=== PATIENT | female | born 1975 ===

== ENCOUNTER 2017-03-03 02:39 | Emergency (ER) | payer OTHER ==
[2017-03-03 02:49] VITALS: BP 112/73; PULSE 68; TEMP 98.5
[2017-03-03 02:57] VITALS: RESP 16; O2SAT 100
--- NOTE | 2017-03-03 03:37 | ED PDOC ---
HPI: SOB/CHF/COPD Time Seen by Provider: 03/03/17 02:46 Chief Complaint (Nursing): Flu-like Symptoms Chief Complaint (Provider): SOB History Per: Patient, Family (daughter ) History/Exam Limitations: no limitations Onset/Duration Of Symptoms: Sudden Onset Current Symptoms Are (Timing): Gone Now Additional Complaint(s): 41yo female with PMHx including prediabetes presents to the ED for eval of isolated episode of SOB. Daughter brought patient in because of brief episode of difficulty breathing while lying flat that lasted less than 1 minute with coughing fit. Resolved completely after episode however daughter forced patient to come to ED for eval. Patient has had 3 similar episodes this past year. Of note, patient has had flu-like symptoms for the past week with congestion and runny nose. Past Medical History Reviewed: Historical Data, Nursing Documentation, Vital Signs Vital Signs: Last Vital Signs Temp 98.5 F 03/03/17 02:55 Pulse 68 03/03/17 02:55 Resp 16 03/03/17 02:55 BP 112/73 03/03/17 02:55 Pulse Ox 100 03/03/17 03:41 - Medical History Other PMH: prediabetes - Surgical History Surgical History: - Family History Family History: States: No Known Family Hx - Home Medications Home Medications: Ambulatory Orders Medication Instructions Recorded Oxycodone HCl/Acetaminophen 1 tab PO Q6H PRN #15 tab 04/27/15 [Percocet 325 mg-5 mg] Famotidine [Pepcid] 20 mg PO BID PRN #10 tab 09/01/15 Doxycycline Hyclate 100 mg PO BID #27 capsule 11/19/15 Ibuprofen 600 mg PO Q6 PRN #15 tablet 11/19/15 Ofloxacin Otic 0.3% [Floxin 0.3% 10 drop DAILY #1 bottle 06/09/16 Otic Soln] Albuterol HFA [Ventolin HFA 90 2 puff IH [id number] #1 puff 03/03/17 mcg/actuation (8 g)] - Allergies Allergies/Adverse Reactions: Allergies Allergy/AdvReac Type Severity Reaction Status Date / Time No Known Allergies Allergy Verified 11/18/15 19:49 Review of Systems ROS Statement: Except As Marked, All Systems Reviewed And Found Negative ENT: Positive for: Nose Discharge, Nose Congestion Respiratory: Positive for: Cough, Shortness of Breath Physical Exam - Reviewed Nursing Documentation Reviewed: Yes Vital Signs Reviewed: Yes - Physical Exam Appears: Positive for: Well, No Acute Distress Head Exam: Positive for: ATRAUMATIC, NORMAL INSPECTION, NORMOCEPHALIC Skin: Positive for: Normal Color, Warm, Dry Eye Exam: Positive for: Normal appearance, EOMI, PERRL ENT: Positive for: Normal ENT Inspection Neck: Positive for: Normal, Painless ROM, Supple Cardiovascular/Chest: Positive for: Regular Rate, Rhythm. Negative for: Murmur , Tachycardia Respiratory: Positive for: Normal Breath Sounds. Negative for: Wheezing, Respiratory Distress Gastrointestinal/Abdominal: Positive for: Normal Exam, Soft. Negative for: Tenderness Back: Positive for: Normal Inspection Extremity: Positive for: Normal ROM. Negative for: Deformity, Swelling Neurologic/Psych: Positive for: Alert, Oriented - ECG O2 Sat by Pulse Oximetry: 100 Pulse Ox Interpretation: Normal (RA) Medical Decision Making Medical Decision Makin: Impression: nasal congestion, viral illness Plan: saline nebulizer 0332: Patient stable for d/c. Return precautions given. Scribe Attestation: Documented by Rachelle Vogel acting as a scribe for Tim White MD. Provider Scribe Attestation: All medical record entries made by the Scribe were at my direction and personally dictated by me. I have reviewed the chart and agree that the record accurately reflects my personal performance of the history, physical exam, medical decision making, and the department course for this patient. I have also personally directed, reviewed, and agree with the discharge instructions and disposition. Disposition - Clinical Impression Clinical Impression: Upper respiratory infection - Patient ED Disposition Is Patient to be Admitted: No - Disposition Referrals: [facility] [Outside] Disposition: Routine/Home Disposition Time: 03:32 Condition: STABLE Prescriptions: Albuterol HFA [Ventolin HFA 90 mcg/actuation (8 g)] 2 puff IH [id number] #1 puff Instructions: Albuterol (By breathing), Upper Respiratory Infection (ED) Print Language: GUATEMALAN
== END 2017-03-03 05:08 | disposition home or self-care (01) ==
LOC: H.ER 02:39
DX: J06.9 Acute upper respiratory infection, unspecified (principal); R09.81 Nasal congestion; R73.03 Prediabetes

== ENCOUNTER 2018-01-12 21:31 | Emergency (ER) | payer OTHER ==
[2018-01-12 21:39] VITALS: BP 146/73; PULSE 89; RESP 18; TEMP 98.8; O2SAT 97
[2018-01-12] MEDS ORDERED: Morphine 4 MG/ML VIAL IV STA (21:47)
[2018-01-12] MEDS ORDERED: Morphine 4 MG/ML VIAL ONE (21:49)
--- NOTE | 2018-01-12 23:26 | CP.PCM.CON ---
History of Present Illness - History of Present Illness History of Present Illness: Podiatry Consult Note - Dr. Stone 42 year old female patient seen and evaluated in ED regarding left ankle pain. Daughter present at bedside. Patient states at approximately 8:30PM this evening , her right knee "locked" while she was walking and fell to the ground. Admits she felt dizzy and SOB at time of injury, though has neither of these symptoms at present. Patient was taken to [facility] ED by EMS for further evaluation. Patient unable to bear weight to her LLE. Patient reports severe pain to her left ankle ; was given Morphine 4mg IV in ED which has provided mild relief. Patient admits to feeling slight numbness localized to the front of her ankle. No other complaints. Denies N/V/F/D/C. Review of Systems - Review of Systems All systems: reviewed and no additional remarkable complaints except (as per HPI ) Past Patient History - Past Social History Smoking Status: Never Smoked - ENDOCRINE/METABOLIC Other/Comment: pre-diabetic - PSYCHIATRIC Hx Substance Use: No - SURGICAL HISTORY Hx Surgeries: Yes Hx Section: Yes (x2) - ANESTHESIA Hx Anesthesia: Yes Meds Home Medications: Home Medication List Medication Instructions Recorded Confirmed Type oxyCODONE/Acetaminophen [Percocet 1 ea PO Q8 PRN #14 tab 01/13/18 Rx 5/325 mg Tab] Allergies/Adverse Reactions: Allergies Allergy/AdvReac Type Severity Reaction Status Date / Time No Known Allergies Allergy Verified 01/12/18 21:37 Physical Exam - Constitutional Appears: Well, Non-toxic, In Acute Distress - Extremities Exam Additional comments: LLE focused physical exam VASC: DP pulse palpable 2/4. PT pulse nonpalpable secondary to edema. CFT <3 seconds to all digits. Temperature gradient warm to warm. Nonpitting perimalleolar edema noted. NEURO: Light touch sensation diminished at anterior ankle joint; however, present at anterior/lateral/posterior/medial leg, medial/lateral/posterior ankle , dorsal/plantar/medial/lateral foot. ORTHO: Pain on palpation medial and lateral malleoli. Active digital ROM noted to digits 1-5. Slight active ankle DF noted however decreased due to guarding. Tenderness upon posterior calf squeeze. Pain upon calcaneal squeeze. Pain upon tib-fib compression. - Neurological Exam Neurological exam: Alert, Oriented x3 - Psychiatric Exam Psychiatric exam: Anxious Results - Vital Signs Recent Vital Signs: Last Vital Signs Temp 98.8 F 01/12/18 21:37 Pulse 89 01/12/18 21:37 Resp 18 01/12/18 21:37 BP 146/73 01/12/18 21:37 Pulse Ox 97 01/12/18 21:37 - Labs Result Diagrams: 01/13/18 02:05 01/13/18 02:05 Assessment & Plan - Assessment and Plan (Free Text) Assessment: 42 year old female with displaced bimalleolar ankle fracture LLE secondary to fall Plan: Patient seen and evaluated Discussed with attending, Dr. Stone Left ankle XR reviewed: displaced bimalleolar ankle fracture Discussed with patient and family that surgery is highly recommended due to the deformity at present; informed patient of risks, benefits, complications, and alternatives to surgical intervention and wishes to proceed. CBC/CMP/CPK/Coags/CXR/EKG ordered -CPK WNL Posterior splint applied to LLE; patient to be NWB LLE with the assistance of crutches -Keep dressing clean/dry/intact until follow up appointment Recommend RICE therapy Pain control per ED Advised patient to follow up with Dr. Stone in the podiatry clinic on 01/17/18 to schedule for surgery Stable per podiatry standpoint Thank you for the consult, please reconsult podiatry as needed
--- NOTE | 2018-01-13 00:09 | ED PDOC ---
Lower Extremity Pain/Injury Time Seen by Provider: 01/12/18 21:44 Chief Complaint (Nursing): Lower Extremity Problem/Injury Chief Complaint (Provider): Left ankle pain, twisted History Per: Patient, Family History/Exam Limitations: no limitations Onset/Duration Of Symptoms: Mins Current Symptoms Are (Timing): Still Present Additional Complaint(s): 42 yo female presents with left ankle pain after a fall. Pt states she has had problems with her knees for a long time and [employer] her knees buckled and she twisted the right ankle. No back injury. No head injury. Pt reports feeling cramping all over. Past Medical History Reviewed: Historical Data, Nursing Documentation, Vital Signs Vital Signs: Last Vital Signs Temp 98.8 F 01/12/18 21:37 Pulse 89 01/12/18 21:37 Resp 18 01/12/18 21:37 BP 146/73 01/12/18 21:37 Pulse Ox 97 01/12/18 21:37 - Medical History PMH: Diabetes - Surgical History Surgical History: - Family History Family History: States: Unknown Family Hx - Home Medications Home Medications: Ambulatory Orders Medication Instructions Recorded Oxycodone HCl/Acetaminophen 1 tab PO Q6H PRN #15 tab 04/27/15 [Percocet 325 mg-5 mg] Famotidine [Pepcid] 20 mg PO BID PRN #10 tab 09/01/15 Doxycycline Hyclate 100 mg PO BID #27 capsule 11/19/15 Ibuprofen 600 mg PO Q6 PRN #15 tablet 11/19/15 Ofloxacin Otic 0.3% [Floxin 0.3% 10 drop DAILY #1 bottle 06/09/16 Otic Soln] Albuterol HFA [Ventolin HFA 90 2 puff IH [id number] #1 puff 03/03/17 mcg/actuation (8 g)] - Allergies Allergies/Adverse Reactions: Allergies Allergy/AdvReac Type Severity Reaction Status Date / Time No Known Allergies Allergy Verified 01/12/18 21:37 Physical Exam - Reviewed Nursing Documentation Reviewed: Yes Vital Signs Reviewed: Yes - Physical Exam Appears: Positive for: Well, Non-toxic, No Acute Distress Head Exam: Positive for: ATRAUMATIC, NORMAL INSPECTION, NORMOCEPHALIC Skin: Positive for: Warm. Negative for: Normal Color (No ecchymosis, no erythema ) Eye Exam: Positive for: Normal appearance ENT: Positive for: Normal ENT Inspection Neck: Positive for: Normal, Painless ROM Respiratory: Negative for: Accessory Muscle Use, Respiratory Distress Pulses-Dorsalis Pedis (L): 2+ Pulses-Dorsalis Pedis (R): 2+ Pulses-Post. Tibialis (L): 2+ Pulses-Post. Tibialis (R): 2+ Back: Positive for: Normal Inspection. Negative for: Vertebral Tenderness Extremity: Positive for: Tenderness (Bilateral malleolous ), Deformity (Left fibula), Swelling. Negative for: Normal ROM (Decreased ROM in the ankle due to pain) Neurologic/Psych: Positive for: Alert, Oriented - ECG O2 Sat by Pulse Oximetry: 97 Medical Decision Making Medical Decision Making: Podiatry consult completed. Endorsed to Anthony Lyles PA-C pending disposition. Disposition - Clinical Impression Clinical Impression: Ankle fracture - Patient ED Disposition Is Patient to be Admitted: Transfer of Care - Disposition Disposition: Transfer of Care Disposition Time: 00:11 Condition: STABLE Instructions: Ankle Fracture
[2018-01-13 02:09] LABS: BASO % 0.4 % (0.0-2.0); EOS # 0.1 K/uL (0.0-0.7); EOS % 1.5 % (0.0-4.0); HEMOGLOBIN 10.8 g/dL (12.0-16.0); LYMPH # 3.4 K/uL (1.0-4.3); LYMPH % 38.3 % (20.0-40.0); MEAN CELL VOLUME 75.2 fl (81.0-99.0); MEAN CORPUSCULAR HEMOGLOBIN 23.6 pg (27.0-31.0); MEAN CORPUSCULAR HGB CONC 31.4 g/dL (33.0-37.0); MEAN PLATELET VOLUME 8.9 fl (7.2-11.7); MONO # 0.7 K/uL (0.0-0.8); MONO % 8.2 % (0.0-10.0); NEUT # 4.5 K/uL (1.8-7.0); NEUT % 51.6 % (50.0-75.0); NRBC % 0.1 % (0.0-0.0); RBC 4.57 Mil/uL (3.80-5.20); RED CELL DISTRIBUTION WIDTH 16.4 % (11.5-14.5); WHITE BLOOD COUNT 8.8 K/uL (4.8-10.8)
[2018-01-13 02:19] LABS: ALB/GLOB RATIO 1.2 (1.0-2.1); ALBUMIN 4.4 g/dL (3.5-5.0); ALT/SGPT 67 U/L (9-52); AST/SGOT 43 U/L (14-36); BLOOD UREA NITROGEN 17 mg/dl (7-17); CALCIUM 9.9 mg/dL (8.4-10.2); GFR AFRICAN-AMERICAN > 60; GFR NON-AFRICAN AMERICAN > 60
[2018-01-13 02:27] LABS: PARTIAL THROMBOPLASTIN TIME 30.9 Seconds (25.6-37.1); PROTHROMBIN TIME 10.8 Seconds (9.8-13.1)
--- NOTE | 2018-01-13 03:42 | ED PDOC ---
- Laboratory Results Result Diagrams: 01/13/18 02:05 01/13/18 02:05 - ECG O2 Sat by Pulse Oximetry: 97 - Radiology X-Ray: Interpreted by Me (CXR) X-Ray Interpretation: No Acute Disease - Progress ED Course And Treament: 0000 Signed out to me pending podiatry disposition. 0020 Reports moderate analgesia after getting Toradol. 0111 Spoke with Radha, podiatry resident, who discussed case with Dr. Stone and requests pt. to be cleared for surgery and for CPK level to be done. 0230 Leg was splinted by Radha in ED and arrangements made for outpt f/u with podiatry clinic. Disposition - Clinical Impression Clinical Impression: Ankle fracture - POA Present On Arrival: None - Disposition Referrals: Podiatry Clinic [Outside] Disposition: Routine/Home Disposition Time: 04:00 Condition: STABLE Additional Instructions: Follow up with podiatry clinic on Monday01/17/2018 between 12:00pm - 3:00pm WITHOUT FAIL. Prescriptions: oxyCODONE/Acetaminophen [Percocet 5/325 mg Tab] 1 ea PO Q8 PRN #14 tab PRN Reason: Pain Instructions: Ankle Fracture, How to Use Crutches Forms: [employer] (Ukrainian), [facility] ED School/Work Excuse Print Language: TRINIDADIAN
--- NOTE | 2018-01-13 10:30 | RAD ---
PROCEDURE: Left ankle dated 01/12/2018 HISTORY: left ankle and foot pain s/p fall COMPARISON: Correlation made with concurrent radiographs of the left tibia and fibula. FINDINGS: BONES: There is a comminuted oblique/diagonal fracture traversing the distal left fibular diaphysis with a fracture traversing the medial malleolus and widening of the ankle mortise. JOINTS: Widening of the ankle mortise consistent with ligamentous disruption SOFT TISSUES: Surrounding soft tissue swelling medial greater than lateral. OTHER FINDINGS: None. IMPRESSION: There is a comminuted fracture traversing the distal left fibular diaphysis. Fracture medial malleolus with widening of the ankle mortise consistent with ligamentous disruption. Surrounding soft tissue swelling medial greater than lateral.
--- NOTE | 2018-01-13 10:31 | RAD ---
PROCEDURE: Radiographs of the left tibia and fibula. HISTORY: pain, twisted ankle COMPARISON: Correlation made with concurrent radiographs of the left ankle. TECHNIQUE: Frontal and lateral views obtained. FINDINGS: BONES: There is a comminuted oblique/diagonal fracture traversing the distal left fibular diaphysis with a fracture traversing the medial malleolus and widening of the ankle mortise consistent with ligamentous disruption. . Surrounding soft tissue swelling medial greater than lateral. JOINT SPACES: Widening of the ankle mortise consistent with ligamentous disruption. OTHER FINDINGS: None. IMPRESSION: There is a comminuted oblique/diagonal fracture traversing the distal left fibular diaphysis with a fracture traversing the medial malleolus and widening of the ankle mortise consistent with ligamentous disruption.
--- NOTE | 2018-01-15 10:10 | RAD ---
HISTORY: clearance COMPARISON: No prior. FINDINGS: LUNGS: No active pulmonary disease. PLEURA: No significant pleural effusion identified, no pneumothorax apparent. CARDIOVASCULAR: Normal. OSSEOUS STRUCTURES: No significant abnormalities. VISUALIZED UPPER ABDOMEN: Normal. OTHER FINDINGS: None. IMPRESSION: No active disease.
--- NOTE | 2018-01-15 13:32 | CARD ---
APPROVED REPORT EKG Measurement Heart [id number] NE 154P30 [id number] <Conclusion> Normal sinus rhythm Nonspecific ST abnormality Abnormal ECG
== END 2018-01-13 04:15 | disposition home or self-care (01) ==
LOC: H.ER 21:31
DX: S82.52XA Displaced fracture of medial malleolus of left tibia, initial encounter for closed fracture (principal); E11.9 Type 2 diabetes mellitus without complications; W19.XXXA Unspecified fall, initial encounter
CPT/HCPCS: 29515; 71045; 73590; 73610; 80053; 81025; 82550; 85025; 85610; 85730; 86850; 86900; 93005; 99285; J1885; J2270

== ENCOUNTER 2018-01-14 02:00 | Inpatient (IN) | payer OTHER ==
[2018-01-14 02:14] VITALS: BMI 36.6
--- NOTE | 2018-01-14 02:33 | ED PDOC ---
HPI: General Adult Time Seen by Provider: 01/14/18 02:02 Chief Complaint (Nursing): Lower Extremity Problem/Injury History Per: Patient, Family (daughter) Additional Complaint(s): Pt. states at approximately 2000 today she fell down trying to sit back on a chair. States yesterday she was dx with a L ankle fracture and placed on a splint and is currently using crutches. As per daughter pt. has a pre-existing R knee injury for which her PMD is treating her. When she attempted to sit down she lost balance on her R leg and fell on her L. Since falling down pain and swelling worsened on the L leg. Prior to the fall pain was controlled with percocet and splint fit well but after the fall splint began to feel tighter and pain became uncontrolled with percocet prompting ED visit. Denies other injury, chest pain, SOB, palpitations, head injury. Past Medical History Reviewed: Historical Data, Nursing Documentation, Vital Signs Vital Signs: Last Vital Signs Temp 98.6 F 01/14/18 05:24 Pulse 87 01/14/18 05:24 Resp 14 01/14/18 05:24 BP 111/69 01/14/18 05:24 Pulse Ox 100 01/14/18 04:40 - Medical History PMH: Diabetes (pre-DM) - Surgical History Surgical History: - Family History Family History: States: No Known Family Hx - Home Medications Home Medications: Ambulatory Orders Medication Instructions Recorded Naproxen [Naproxen] 375 mg PO PRN PRN 01/13/18 oxyCODONE/Acetaminophen [Percocet 1 ea PO Q8 PRN #14 tab 01/13/18 5/325 mg Tab] - Allergies Allergies/Adverse Reactions: Allergies Allergy/AdvReac Type Severity Reaction Status Date / Time No Known Allergies Allergy Verified 01/14/18 02:15 Review of Systems ROS Statement: Except As Marked, All Systems Reviewed And Found Negative Musculoskeletal: Positive for: Leg Pain Physical Exam - Reviewed Nursing Documentation Reviewed: Yes Vital Signs Reviewed: Yes - Physical Exam Appears: Positive for: Well, Non-toxic, No Acute Distress Head Exam: Positive for: ATRAUMATIC, NORMAL INSPECTION, NORMOCEPHALIC Skin: Positive for: Normal Color, Warm. Negative for: Rash Eye Exam: Positive for: Normal appearance ENT: Positive for: Normal ENT Inspection Neck: Positive for: Normal, Painless ROM Cardiovascular/Chest: Positive for: Regular Rate, Rhythm Respiratory: Positive for: CNT, Normal Breath Sounds Pulses-Dorsalis Pedis (L): 2+ Pulses-Dorsalis Pedis (R): 2+ Gastrointestinal/Abdominal: Positive for: Normal Exam, Soft. Negative for: Tenderness Back: Positive for: Normal Inspection Extremity: Positive for: Other (L leg in posterior short leg splint which is clean, dry, and intact) Neurologic/Psych: Positive for: Alert, Oriented - Laboratory Results Result Diagrams: 01/14/18 03:50 01/14/18 03:50 - ECG O2 Sat by Pulse Oximetry: 98 - Progress ED Course And Treament: Posterior short leg splint was removed. L leg appears more swollen from yesterday's exam with scattered ecchymosis, intact vesicle on medial surface of L ankle just inferior to medial malleoli; no deformity; DP pulse 2+ b/l; able to actively move toes on L foot; distal sensation intact Labs, toradol 30mg IVP, L ankle/tib/fib x-rays ordered. Case d/w Radha, podiatry resident, who will come see patient in ED. 0320 L ankle x-ray: bimalleolar fx is further displaced when compared to previous x- rays. Pt. evaluated by Radha who spoke with Dr. Stone and requests pt. to be admitted. 0325 Due to increase in displacement, unresolved pain with PO narcotics at home, and instability on crutches pt. will be admitted. Dr. Mathias discussed case with Dr. Prasad, FP resident, and arrangements made for admission. Disposition - Clinical Impression Clinical Impression: Ankle fracture - Patient ED Disposition Is Patient to be Admitted: Yes - Disposition Disposition Time: 03:31 Condition: STABLE
--- NOTE | 2018-01-14 02:37 | CP.PCM.CON ---
History of Present Illness - History of Present Illness History of Present Illness: Podiatry Consult Note - Dr. Stone 42 year old female patient presents to ED s/p fall onto left bimalleolar ankle fracture. Daughter and ex-partner present at bedside. Of note, patient was seen in [facility] ED yesterday evening and was found to have a displaced bimalleolar ankle fracture LLE; was splinted and discharged home on crutches with plan to be followed as outpatient. Patient states after discharge, pain was controlled and was resting at home uneventfully until about 20:00 yesterday when she lost balance while attempting to sit in a chair, and fell onto the splint. Currently , patient reports severe pain to her left leg and ankle not controlled by her Rx Percocet. Denies any numbness to LLE. Denies other injuries. Admits to feeling lightheaded s/p fall. Denies N/V/F/D/C/SOB. Review of Systems - Review of Systems All systems: reviewed and no additional remarkable complaints except (as per HPI ) Past Patient History - Past Social History Smoking Status: Never Smoked - ENDOCRINE/METABOLIC Other/Comment: pre-diabetic - PSYCHIATRIC Hx Substance Use: No - SURGICAL HISTORY Hx Surgeries: Yes Hx Section: Yes (x2) - ANESTHESIA Hx Anesthesia: Yes Meds Allergies/Adverse Reactions: Allergies Allergy/AdvReac Type Severity Reaction Status Date / Time No Known Allergies Allergy Verified 01/14/18 02:15 - Medications Medications: Current Medications Ketorolac Tromethamine (Toradol) 30 mg IVP ONCE ONE Stop: 01/14/18 02:24 Physical Exam - Constitutional Appears: Well, Non-toxic, No Acute Distress - Extremities Exam Additional comments: LLE focused physical exam VASC: DP pulse palpable 2/4. PT pulse nonpalpable secondary to edema. CFT <3 seconds to all digits. Temperature gradient warm to warm. Nonpitting perimalleolar edema noted, worsened since yesterday. NEURO: Light touch sensation diminished at anterior ankle joint; however, present at anterior/lateral/posterior/medial leg, medial/lateral/posterior ankle , dorsal/plantar/medial/lateral foot. DERM: Ecchymosis noted around medial foot/ankle with one serous blister inferior to medial malleolus. No open lesions noted. No skin tenting noted. ORTHO: Pain on palpation medial and lateral malleoli. Active digital ROM noted to digits 1-5. Slight active ankle DF noted however decreased due to guarding. Tenderness upon posterior calf squeeze. Pain upon calcaneal squeeze. Pain upon tib-fib compression. - Neurological Exam Neurological exam: Alert, Oriented x3 - Psychiatric Exam Psychiatric exam: Normal Affect, Normal Mood Results - Vital Signs Recent Vital Signs: Last Vital Signs Temp 98.4 F 01/14/18 02:16 Pulse 84 01/14/18 02:16 Resp 16 01/14/18 02:16 BP 137/82 01/14/18 02:16 Pulse Ox 98 01/14/18 02:35 - Labs Result Diagrams: 01/14/18 03:50 Assessment & Plan - Assessment and Plan (Free Text) Assessment: 42 year old female with displaced bimalleolar ankle fracture LLE secondary to fall Plan: Patient seen and evaluated Discussed with attending, Dr. Stone Left ankle XR reviewed(01/13/18): displaced bimalleolar ankle fracture Left ankle XR reviewed(01/14/18): further displacement bimalleolar ankle fracture , with fragmentation of proximal end of fibular fracture Discussed with patient and family that surgery is highly recommended due to the deformity at present; informed patient of risks, benefits, complications, and alternatives to surgical intervention and wishes to proceed. Posterior splint reapplied to LLE; patient to be strict NWB with no OOB privileges Recommend RICE therapy Patient to be admitted for intractable pain and imbalance Pain control per medicine Podiatry will continue to follow
[2018-01-14 04:16] LABS: ALB/GLOB RATIO 1.1 (1.0-2.1); ALBUMIN 4.2 g/dL (3.5-5.0); ALT/SGPT 57 U/L (9-52); AST/SGOT 58 U/L (14-36); BLOOD UREA NITROGEN 14 mg/dl (7-17); CALCIUM 9.4 mg/dL (8.4-10.2); GFR AFRICAN-AMERICAN > 60; GFR NON-AFRICAN AMERICAN > 60
--- NOTE | 2018-01-14 04:17 | CP.PCM.HP ---
<Nimesh Prasad - Last Filed: 01/14/18 04:17> History of Present Illness - History of Present Illness History of Present Illness: CC: left leg pain HPI: 42 y/o woman w/ pmh of pre-diabetes presents to ED w/ left leg pain. Patient was seen in ED earlier 1 day ago for left displaced bimalleolar ankle fracture s/p fall. Patient was splinted, given crutches, discharged, and arrangements were made for patient to follow up as outpatient for surgery after medical optimization. Patient's pain was controlled but returns to ED due to fall last night at 20:00 upon trying to sit down. Patient lost balanced and fell on left leg. Patient denies LOC or head trauma. Patient took percocet at 01:00 prior to arrival w/o relief. Patient reports mild light-headedness. Patient denies headaches, chest pain, SOB, abdominal pain, nausea, vomiting, diarrhea, dysuria, or fever. ED course: vitals: 98.4 F, 84 beats/min, 137/82 mm Hg, resp 16, O2 98% RA CBC: pending (prior ED visit 01/13/2018;8.8>10.8/34.4<256) CMP: 138/4.2, 103/21, 14/0.5, glucose 103, AST 58, ALT 57, alk phos 103 ankle XR: further displacement bimalleolar ankle fracture, with fragmentation of proximal end of fibular fracture tibia/fibula XR: no tibial fracture observed, partial view of fragmentation of fibular fracture PMD: none PMH: pre-diabetes meds: none allergies: NKDA PSH: x2 Fam: denies SOC: denies smoking, alcohol, and drugs ROS: 12 points assessed and negative unless otherwise reported in HPI Present on Admission - Present on Admission Any Indicators Present on Admission: No History of DVT/PE: No History of Uncontrolled Diabetes: No Urinary Catheter: No Decubitus Ulcer Present: No Review of Systems - Review of Systems All systems: reviewed and no additional remarkable complaints except - Constitutional Constitutional: absent: Chills, Fever - EENT Eyes: absent: Change in Vision - Cardiovascular Cardiovascular: absent: Chest Pain - Respiratory Respiratory: absent: Dyspnea - Gastrointestinal Gastrointestinal: absent: Abdominal Pain, Diarrhea, Nausea, Vomiting - Genitourinary Genitourinary: absent: Dysuria - Musculoskeletal Musculoskeletal: As Per HPI - Integumentary Integumentary: absent: Rash - Neurological Neurological: As Per HPI. absent: Numbness, Headaches Past Patient History - Past Social History Smoking Status: Never Smoked - ENDOCRINE/METABOLIC Other/Comment: pre-diabetic - PSYCHIATRIC Hx Substance Use: No - SURGICAL HISTORY Hx Surgeries: Yes Hx Section: Yes (x2) - ANESTHESIA Hx Anesthesia: Yes Meds Allergies/Adverse Reactions: Allergies Allergy/AdvReac Type Severity Reaction Status Date / Time No Known Allergies Allergy Verified 01/14/18 02:15 Physical Exam - Constitutional Appears: Non-toxic, No Acute Distress - Head Exam Head Exam: ATRAUMATIC, NORMAL INSPECTION, NORMOCEPHALIC - Eye Exam Eye Exam: EOMI, Normal appearance, PERRL - ENT Exam ENT Exam: Mucous Membranes Moist - Neck Exam Neck exam: Positive for: Full Rom. Negative for: Tenderness - Respiratory Exam Respiratory Exam: Clear to Auscultation Bilateral. absent: Accessory Muscle Use , Decreased Breath Sounds, Rales, Rhonchi, Wheezes, Respiratory Distress - Cardiovascular Exam Cardiovascular Exam: REGULAR RHYTHM. absent: Tachycardia - GI/Abdominal Exam GI & Abdominal Exam: Normal Bowel Sounds, Soft. absent: Distended, Tenderness - Extremities Exam Additional comments: right leg and foot: full ROM, no trauma, no edema, DP and PT pulses palpable left leg and foot: closed displaced bimalleolar ankle fracture, edematous, ecchymosis at medial malleolar region, no erythema, DP pulse palpable but not PT , sensation to touch present but diminished compared to right, tenderness at ankle, calf squeeze, and tibial-fibular compression - Neurological Exam Neurological exam: Alert, CN II-XII Intact, Oriented x3 - Skin Skin Exam: Dry, Intact Results - Vital Signs Recent Vital Signs: Last Vital Signs Temp 98.4 F 01/14/18 02:16 Pulse 84 01/14/18 02:16 Resp 16 01/14/18 02:16 BP 137/82 01/14/18 02:16 Pulse Ox 98 01/14/18 03:33 - Labs Result Diagrams: 01/14/18 03:50 Labs: Laboratory Results - last 24 hr 01/14/18 03:50 Sodium 138 Potassium 4.2 Chloride 103 Carbon Dioxide 21 L Anion Gap 18 BUN 14 Creatinine 0.5 L Est GFR ( Amer) > 60 Est GFR (Non-Af Amer) > 60 Random Glucose 103 Calcium 9.4 Total Bilirubin 0.7 AST 58 H D ALT 57 H Alkaline Phosphatase 103 Total Protein 8.0 Albumin 4.2 Globulin 3.8 Albumin/Globulin Ratio 1.1 Assessment & Plan - Assessment and Plan (Free Text) Assessment: 42 y/o woman w/ pmh of pre-diabetes presents to ED w/ left leg pain. Due to closed displaced left bimalleolar ankle fracture Plan: Left leg/foot pain - closed displaced left bimalleolar ankle fracture s/p fall - vitals: 98.4 F, 84 beats/min, 137/82 mm Hg, resp 16, O2 98% RA - CBC: pending (prior ED visit 01/13/2018; 8.8>10.8/34.4<256) - CMP: 138/4.2, 103/21, 14/0.5, glucose 103, AST 58, ALT 57, alk phos 103 - ankle XR: further displacement bimalleolar ankle fracture, with fragmentation of proximal end of fibular fracture - tibia/fibula XR: no tibial fracture observed, partial view of fragmentation of fibular fracture - podiatry recommendations appreciated - Posterior splint to be reapplied to LLE - patient to be strict NWB with no OOB privileges - RICE therapy - admit to MedSurg - need medical clearance for OR - EKG ordered - pain management: toradol 30 mg IV Q6h prn (moderate pain), morphine 4 mg IV Q4h prn (severe pain) - monitor for acute changes Diet - regular Prophylactic measures DVT: lovenox 40 mg SC daily <Ember Muñiz - Last Filed: 01/14/18 09:06> Results - Vital Signs Recent Vital Signs: Last Vital Signs Temp 98.6 F 01/14/18 05:49 Pulse 74 01/14/18 05:49 Resp 20 01/14/18 05:49 BP 116/63 01/14/18 05:49 Pulse Ox 95 01/14/18 05:49 - Labs Result Diagrams: 01/14/18 03:50 01/14/18 03:50 Labs: Laboratory Results - last 24 hr 01/14/18 01/14/18 03:50 03:50 WBC 8.7 RBC 4.28 Hgb 10.1 L Hct 31.7 L MCV 74.2 L MCH 23.6 L MCHC 31.9 L RDW 16.1 H Plt Count 249 MPV 8.9 Neut % (Auto) 56.8 Lymph % (Auto) 32.0 [place] % (Auto) 9.8 Eos % (Auto) 1.1 Baso % (Auto) 0.3 Neut # (Auto) 4.9 Lymph # (Auto) 2.8 [place] # (Auto) 0.9 H Eos # (Auto) 0.1 Baso # (Auto) 0.0 Sodium 138 Potassium 4.2 Chloride 103 Carbon Dioxide 21 L Anion Gap 18 BUN 14 Creatinine 0.5 L Est GFR ( Amer) > 60 Est GFR (Non-Af Amer) > 60 Random Glucose 103 Calcium 9.4 Total Bilirubin 0.7 AST 58 H D ALT 57 H Alkaline Phosphatase 103 Total Protein 8.0 Albumin 4.2 Globulin 3.8 Albumin/Globulin Ratio 1.1 Attending/Attestation - Attestation I have personally seen and examined this patient.: Yes I have fully participated in the care of the patient.: Yes I have reviewed all pertinent clinical information: Yes
[2018-01-14] MEDS ORDERED: Morphine 4 MG/ML VIAL IVP PRN (04:52)
[2018-01-14 05:05] LABS: BASO % 0.3 % (0.0-2.0); EOS # 0.1 K/uL (0.0-0.7); EOS % 1.1 % (0.0-4.0); HEMOGLOBIN 10.1 g/dL (12.0-16.0); LYMPH # 2.8 K/uL (1.0-4.3); MEAN CELL VOLUME 74.2 fl (81.0-99.0); MEAN CORPUSCULAR HEMOGLOBIN 23.6 pg (27.0-31.0); MEAN CORPUSCULAR HGB CONC 31.9 g/dL (33.0-37.0); MEAN PLATELET VOLUME 8.9 fl (7.2-11.7); MONO # 0.9 K/uL (0.0-0.8); MONO % 9.8 % (0.0-10.0); NEUT # 4.9 K/uL (1.8-7.0); NEUT % 56.8 % (50.0-75.0); NRBC % 0.2 % (0.0-0.0); RBC 4.28 Mil/uL (3.80-5.20); RED CELL DISTRIBUTION WIDTH 16.1 % (11.5-14.5); WHITE BLOOD COUNT 8.7 K/uL (4.8-10.8)
[2018-01-14] MEDS: Enoxaparin 40 mg Syringe SC SCH (09:17)
[2018-01-15 07:38] LABS: HEMOGLOBIN 10.1 g/dL (12.0-16.0); MEAN CELL VOLUME 74.2 fl (81.0-99.0); MEAN CORPUSCULAR HEMOGLOBIN 23.8 pg (27.0-31.0); MEAN CORPUSCULAR HGB CONC 32.1 g/dL (33.0-37.0); RBC 4.22 Mil/uL (3.80-5.20); RED CELL DISTRIBUTION WIDTH 16.2 % (11.5-14.5); WHITE BLOOD COUNT 6.5 K/uL (4.8-10.8)
[2018-01-15 07:44] LABS: INR 1.1 (0.9-1.2); PARTIAL THROMBOPLASTIN TIME 27.2 Seconds (25.6-37.1); PROTHROMBIN TIME 12.2 Seconds (9.8-13.1)
[2018-01-15 07:57] LABS: ALB/GLOB RATIO 1.1 (1.0-2.1); ALBUMIN 3.8 g/dL (3.5-5.0); ALT/SGPT 70 U/L (9-52); AST/SGOT 50 U/L (14-36); BLOOD UREA NITROGEN 14 mg/dl (7-17); CALCIUM 9.3 mg/dL (8.4-10.2); GFR AFRICAN-AMERICAN > 60; GFR NON-AFRICAN AMERICAN > 60
[2018-01-15] MEDS: Enoxaparin 40 mg Syringe SC SCH (08:16)
--- NOTE | 2018-01-15 10:04 | CP.PCM.PN ---
Subjective - Date & Time of Evaluation Date of Evaluation: 01/15/18 Time of Evaluation: 09:15 - Subjective Subjective: Marina was seen and evaluated at bedside. Reports resting well. Pain well controlled with meds. Denies significant overnight events. Denies: CP/SOB/N/V. Objective - Vital Signs/Intake and Output Vital Signs (last 24 hours): Temp Pulse Resp BP Pulse Ox 97.9 F 70 16 107/65 97 01/15/18 08:34 01/15/18 08:34 01/15/18 08:34 01/15/18 08:34 01/15/18 08:34 - Medications Medications: Current Medications Enoxaparin Sodium (Lovenox) 40 mg SC DAILY [facility] PRN Reason: Protocol Last Admin: 01/15/18 08:16 Dose: 40 mg Ketorolac Tromethamine (Toradol) 30 mg IVP Q6 PRN PRN Reason: Pain, moderate (4-7) Last Admin: 01/15/18 00:36 Dose: 30 mg Morphine Sulfate (Morphine) 4 mg IVP Q4 PRN PRN Reason: Pain, severe (8-10) Last Admin: 01/14/18 06:11 Dose: 4 mg - Labs Labs: 01/15/18 05:50 01/15/18 05:50 PT 12.2 Seconds (9.8-13.1) 01/15/18 05:50 INR 1.1 (0.9-1.2) 01/15/18 05:50 APTT 27.2 Seconds (25.6-37.1) 01/15/18 05:50 - Constitutional Appears: Well, No Acute Distress - Eye Exam Eye Exam: EOMI - Neck Exam Neck Exam: Full ROM - Respiratory Exam Respiratory Exam: Clear to Ausculation Bilateral, NORMAL BREATHING PATTERN. absent: Wheezes - Cardiovascular Exam Cardiovascular Exam: REGULAR RHYTHM, +S1, +S2 - GI/Abdominal Exam GI & Abdominal Exam: Soft, Normal Bowel Sounds. absent: Tenderness - Extremities Exam Extremities Exam: absent: Calf Tenderness, Full ROM Additional comments: pt nwb/oob; L lower extremity wrapped. capillary refill <2 sec. sensation intact. motor of digits of l foot grossly intact. - Psychiatric Exam Psychiatric exam: Normal Affect, Normal Mood Assessment and Plan - Assessment and Plan (Free Text) Plan: 42 y/o woman w/ pmh of pre-diabetes presents to ED w/ left leg pain. Due to closed displaced left bimalleolar ankle fracture Left leg/foot pain - closed displaced left bimalleolar ankle fracture s/p fall - ankle XR: further displacement bimalleolar ankle fracture, with fragmentation of proximal end of fibular fracture - tibia/fibula XR: no tibial fracture observed, partial view of fragmentation of fibular fracture - podiatry recommendations appreciated - Posterior splint to be reapplied to LLE - patient to be strict NWB with no OOB privileges - RICE therapy - admit to MedSurg - EKG: pending - CT lower extremity: bimaleolar fractures; sublexation at the level of the ankle mortise - pain management: toradol 30 mg IV Q6h prn (moderate pain), morphine 4 mg IV Q4h prn (severe pain) - monitor for acute changes Diet - regular Prophylactic measures DVT: lovenox 40 mg SC daily
--- NOTE | 2018-01-15 10:08 | RAD ---
PROCEDURE: Left Ankle Radiographs. HISTORY: trauma COMPARISON: None FINDINGS: BONES: Comminuted fracture of the distal fibular diaphysis with lateral displacement of the distal fracture segment and slight posterior angulation of the butterfly segment. Transverse fracture of the medial malleolus with distraction. Questionable nondisplaced fracture of the posterior malleolus. JOINTS: Disruption of the ankle mortise with significant widening of the medial clear space. Talar dome intact SOFT TISSUES: Marked soft-tissue swelling. OTHER FINDINGS: None. IMPRESSION: Comminuted fracture of the distal fibula, displaced medial malleolar fracture and questionable nondisplaced posterior malleolar fracture with disruption of the ankle mortise as described above.
--- NOTE | 2018-01-15 10:11 | RAD ---
PROCEDURE: Radiographs of the left tibia and fibula. HISTORY: trauma COMPARISON: Left tibia and fibula radiographs dated 01/12/2018. TECHNIQUE: Frontal and lateral views obtained. FINDINGS: BONES: Comminuted fracture of the distal fibular diaphysis with lateral displacement of the distal fracture segment and slight posterior angulation of the butterfly segment. Transverse fracture of the medial malleolus with distraction. Questionable nondisplaced fracture of the posterior malleolus. JOINT SPACES: Disruption of the ankle mortise with significant widening of the medial clear space. Talar dome intact OTHER FINDINGS: None. IMPRESSION: Comminuted fracture of the distal fibula, displaced medial malleolar fracture and questionable nondisplaced posterior malleolar fracture with disruption of the ankle mortise as described above. No significant interval change.
--- NOTE | 2018-01-15 10:45 | CT ---
PROCEDURE: Left lower extremity CT HISTORY: Bimalleolar fracture left ankle. COMPARISON: January 14, 2018. Plain film radiographs TECHNIQUE: 2.5 mm axial acquisition and display. Coronal and sagittal reconstructions. Dose report (mGy-cm): 161.88. FINDINGS: Comminuted fracture distal left fibula. Major fracture fragments are anatomically aligned. No evidence of impaction or distraction. Approximately 1/2 shaft's with displacement. Comminuted fracture distal tibia with avulsion of the largest fracture fragments. Subluxation of the ankle mortise. Unremarkable talus and calcaneus. Soft tissue swelling attests to the acuity of the fracture. IMPRESSION: Bimalleolar fractures described above. Subluxation at the level of the ankle mortise. Concordant results (preliminary interpretation) provided by [facility]. Procedure Completed: 17:09. Preliminary ([facility]) Report: Dictated and Authenticated: 19:19 Final Interpretation: 10:39 January 15, 2018.
--- NOTE | 2018-01-15 15:48 | CP.PCM.PN ---
Subjective - Date & Time of Evaluation Date of Evaluation: 01/15/18 Time of Evaluation: 14:35 - Subjective Subjective: 42 y/o female seen at bedside this afternoon, 3 days s/p left bimalleolar ankle fracture. Pt resting comfortably in bed in NAD. Pt says she is having mild pain in the left leg at present. States her pain was worse last night but is well controlled with meds. Pt remains on bed rest at this time. Denies any events overnight. Denies any F/C/N/V/CP/SOB Objective - Vital Signs/Intake and Output Vital Signs (last 24 hours): Temp Pulse Resp BP Pulse Ox 97.9 F 70 16 107/65 97 01/15/18 08:34 01/15/18 08:34 01/15/18 08:34 01/15/18 08:34 01/15/18 08:34 Intake and Output: 01/15/18 01/15/18 06:59 18:59 Intake Total 200 Output Total 1 Balance 199 - Medications Medications: Current Medications Docusate Sodium (Colace) 100 mg PO DAILY [facility] Last Admin: 01/15/18 13:11 Dose: 100 mg Enoxaparin Sodium (Lovenox) 40 mg SC DAILY [facility] PRN Reason: Protocol Last Admin: 01/15/18 08:16 Dose: 40 mg Ketorolac Tromethamine (Toradol) 30 mg IVP Q6 PRN PRN Reason: Pain, moderate (4-7) Last Admin: 01/15/18 00:36 Dose: 30 mg Morphine Sulfate (Morphine) 4 mg IVP Q4 PRN PRN Reason: Pain, severe (8-10) Last Admin: 01/14/18 06:11 Dose: 4 mg - Labs Labs: 01/15/18 05:50 01/15/18 05:50 PT 12.2 Seconds (9.8-13.1) 01/15/18 05:50 INR 1.1 (0.9-1.2) 01/15/18 05:50 APTT 27.2 Seconds (25.6-37.1) 01/15/18 05:50 - Constitutional Appears: Well, Non-toxic, No Acute Distress - Extremities Exam Additional comments: Posterior splint to LLE clean, dry and intact Pt able to wiggle toes without difficulty CFT < 3 sec to all digits - Neurological Exam Neurological Exam: Alert, Awake, Oriented x3 - Psychiatric Exam Psychiatric exam: Normal Affect, Normal Mood Assessment and Plan - Assessment and Plan (Free Text) Assessment: Patient seen and evaluated Discussed with attending, Dr. Stone Left ankle XR reviewed(01/13/18): displaced bimalleolar ankle fracture Left ankle XR reviewed(01/14/18): further displacement bimalleolar ankle fracture , with fragmentation of proximal end of fibular fracture Posterior splint kept in place to LLE Patient to be strict NWB with no OOB privileges Continue RICE therapy in hospital Pt to go to OR on Monday at 12:30pm for left ankle ORIF Continue pain control per medicine team Podiatry will continue to follow
[2018-01-16 06:39] LABS: MEAN CELL VOLUME 74.1 fl (81.0-99.0); MEAN CORPUSCULAR HEMOGLOBIN 24.2 pg (27.0-31.0); MEAN CORPUSCULAR HGB CONC 32.6 g/dL (33.0-37.0); RBC 4.12 Mil/uL (3.80-5.20); RED CELL DISTRIBUTION WIDTH 16.2 % (11.5-14.5); WHITE BLOOD COUNT 6.8 K/uL (4.8-10.8)
[2018-01-16 06:43] LABS: BLOOD UREA NITROGEN 17 mg/dl (7-17); CALCIUM 9.1 mg/dL (8.4-10.2); GFR AFRICAN-AMERICAN > 60; GFR NON-AFRICAN AMERICAN > 60
[2018-01-16] MEDS: Enoxaparin 40 mg Syringe SC SCH (08:43)
--- NOTE | 2018-01-16 09:33 | CP.PCM.PN ---
Subjective - Date & Time of Evaluation Date of Evaluation: 01/16/18 Time of Evaluation: 08:30 - Subjective Subjective: Pt seen and evaluated at bedside resting comfortably. Pain is well controlled with Toradol; improved overall. Denies significant events. denies CP/SOB/N/V. Objective - Vital Signs/Intake and Output Vital Signs (last 24 hours): Temp Pulse Resp BP Pulse Ox 98.7 F 65 20 110/60 98 01/16/18 05:00 01/16/18 05:00 01/16/18 05:00 01/16/18 05:00 01/16/18 05:00 - Medications Medications: Current Medications Docusate Sodium (Colace) 100 mg PO DAILY [facility] Last Admin: 01/16/18 08:45 Dose: 100 mg Enoxaparin Sodium (Lovenox) 40 mg SC DAILY [facility] PRN Reason: Protocol Last Admin: 01/16/18 08:43 Dose: 40 mg Ketorolac Tromethamine (Toradol) 30 mg IVP Q6 PRN PRN Reason: Pain, moderate (4-7) Last Admin: 01/15/18 17:49 Dose: 30 mg Morphine Sulfate (Morphine) 4 mg IVP Q4 PRN PRN Reason: Pain, severe (8-10) Last Admin: 01/14/18 06:11 Dose: 4 mg - Labs Labs: 01/16/18 06:10 01/16/18 06:10 PT 12.2 Seconds (9.8-13.1) 01/15/18 05:50 INR 1.1 (0.9-1.2) 01/15/18 05:50 APTT 27.2 Seconds (25.6-37.1) 01/15/18 05:50 - Constitutional Appears: Well, No Acute Distress - Eye Exam Eye Exam: EOMI - Neck Exam Neck Exam: Full ROM - Respiratory Exam Respiratory Exam: Clear to Ausculation Bilateral, NORMAL BREATHING PATTERN. absent: Wheezes - Cardiovascular Exam Cardiovascular Exam: REGULAR RHYTHM, +S1, +S2 - GI/Abdominal Exam GI & Abdominal Exam: Soft, Normal Bowel Sounds. absent: Tenderness - Extremities Exam Extremities Exam: absent: Calf Tenderness Additional comments: L lower extremity posterior splint and wrapped in bandaging. cap refill <2 seconds; sensation and motor grossly intact. RICE therapy - Neurological Exam Neurological Exam: Abnormal Gait (NWB OOB), Alert, Awake, CN II-XII Intact, Oriented x3 - Psychiatric Exam Psychiatric exam: Normal Affect, Normal Mood Assessment and Plan - Assessment and Plan (Free Text) Plan: 42 y/o woman w/ pmh of pre-diabetes presents to ED w/ left leg pain. Due to closed displaced left bimalleolar ankle fracture Left leg/foot pain - closed displaced left bimalleolar ankle fracture s/p fall - ankle XR: further displacement bimalleolar ankle fracture, with fragmentation of proximal end of fibular fracture - tibia/fibula XR: no tibial fracture observed, partial view of fragmentation of fibular fracture - admit to [facility] - podiatry recommendations appreciated - Posterior splint to be reapplied to LLE - patient to be strict NWB with no OOB privileges - RICE therapy - PT/OT eval - EKG: NSR - CT lower extremity: bimaleolar fractures; sublexation at the level of the ankle mortise - pain management: toradol 30 mg IV Q6h prn (moderate pain), morphine 4 mg IV Q4h prn (severe pain) - UA: neg - Medically optimized for surgery - Surgery: planned for 01/17/2018 at 12:30 for L ankle ORIF - monitor for acute changes Diet - regular - NPO at midnight 01/17/2018: for surgery Prophylactic measures DVT: lovenox 40 mg SC daily; hold today for surgery tomorrow
[2018-01-16 09:58] LABS: SQUAMOUS EPITHIAL 3 /hpf (0-5); URINE BILIRUBIN NEGATIVE (NEGATIVE); URINE BLOOD NEGATIVE (NEGATIVE); URINE CLARITY CLOUDY (Clear); URINE COLOR YELLOW (YELLOW); URINE GLUCOSE (UA) NEG (Normal); URINE LEUKOCYTE ESTERASE NEG Leu/uL (Negative); URINE PROTEIN NEGATIVE (NEGATIVE); URINE UROBILINOGEN 0.2-1.0 mg/dL (0.2-1.0)
--- NOTE | 2018-01-16 10:26 | CP.PCM.PN ---
Subjective - Date & Time of Evaluation Date of Evaluation: 01/16/18 Time of Evaluation: 08:50 - Subjective Subjective: 42 y/o female seen at bedside this morning, 4 days s/p left bimalleolar ankle fracture. Pt resting comfortably in bed in NAD. Pt says she does not have any pain at this time but is getting restless being in bed all day. Denies any events overnight. Physical therapy at bedside at time of visit to perform evaluation. Denies any F/C/N/V/CP/SOB Objective - Vital Signs/Intake and Output Vital Signs (last 24 hours): Temp Pulse Resp BP Pulse Ox 98.7 F 65 20 110/60 98 01/16/18 05:00 01/16/18 05:00 01/16/18 05:00 01/16/18 05:00 01/16/18 05:00 - Medications Medications: Current Medications Docusate Sodium (Colace) 100 mg PO DAILY [facility] Last Admin: 01/16/18 08:45 Dose: 100 mg Enoxaparin Sodium (Lovenox) 40 mg SC DAILY [facility] PRN Reason: Protocol Last Admin: 01/16/18 08:43 Dose: 40 mg Ketorolac Tromethamine (Toradol) 30 mg IVP Q6 PRN PRN Reason: Pain, moderate (4-7) Last Admin: 01/15/18 17:49 Dose: 30 mg Morphine Sulfate (Morphine) 4 mg IVP Q4 PRN PRN Reason: Pain, severe (8-10) Last Admin: 01/14/18 06:11 Dose: 4 mg - Labs Labs: 01/16/18 06:10 01/16/18 06:10 PT 12.2 Seconds (9.8-13.1) 01/15/18 05:50 INR 1.1 (0.9-1.2) 01/15/18 05:50 APTT 27.2 Seconds (25.6-37.1) 01/15/18 05:50 - Constitutional Appears: Well, Non-toxic, No Acute Distress - Extremities Exam Additional comments: Posterior splint to LLE clean, dry and intact Pt able to wiggle toes without difficulty CFT < 3 sec to all digits - Neurological Exam Neurological Exam: Alert, Awake, Oriented x3 - Psychiatric Exam Psychiatric exam: Normal Affect, Normal Mood Assessment and Plan - Assessment and Plan (Free Text) Assessment: Assessment: 42 y/o female with left displaced bimalleolar ankle fracture Plan: Patient seen and evaluated Discussed with attending, Dr. Stone Left ankle XR reviewed(01/13/18): displaced bimalleolar ankle fracture Left ankle XR reviewed(01/14/18): further displacement bimalleolar ankle fracture , with fragmentation of proximal end of fibular fracture Posterior splint kept in place to LLE for edema control Bedrest lifted to allow for PT evaluation to train patient on NWB status with use of standard walker Continue RICE therapy in hospital Pt to go to OR tomorrow at 12:30pm for left ankle ORIF Continue pain control per medicine team Podiatry will continue to follow
--- NOTE | 2018-01-16 12:26 | CARD ---
APPROVED REPORT EKG Measurement Heart [id number] [place] 154P23 [id number] <Conclusion> Normal sinus rhythm Normal ECG
[2018-01-17 07:02] LABS: HEMOGLOBIN 10.1 g/dL (12.0-16.0); MEAN CELL VOLUME 74.1 fl (81.0-99.0); MEAN CORPUSCULAR HEMOGLOBIN 24.2 pg (27.0-31.0); MEAN CORPUSCULAR HGB CONC 32.7 g/dL (33.0-37.0); RBC 4.16 Mil/uL (3.80-5.20); RED CELL DISTRIBUTION WIDTH 16.2 % (11.5-14.5)
[2018-01-17] MEDS ORDERED: Sodium Chloride 0.9% 1,000 ML IV SCH (07:30)
[2018-01-17 07:47] LABS: ALB/GLOB RATIO 1.1 (1.0-2.1); ALBUMIN 3.7 g/dL (3.5-5.0); ALT/SGPT 71 U/L (9-52); AST/SGOT 44 U/L (14-36); BLOOD UREA NITROGEN 15 mg/dl (7-17); CALCIUM 9.2 mg/dL (8.4-10.2); GFR AFRICAN-AMERICAN > 60; GFR NON-AFRICAN AMERICAN > 60
--- NOTE | 2018-01-17 09:48 | CP.PCM.PN ---
Subjective - Date & Time of Evaluation Date of Evaluation: 01/17/18 Time of Evaluation: 08:20 - Subjective Subjective: pt seen and examined at bedside. Reports a bowel movement yesterday night. Denies significant overnight events. Reports pain well controlled with meds. Denies CP/SOB/N/V. Objective - Vital Signs/Intake and Output Vital Signs (last 24 hours): Temp Pulse Resp BP Pulse Ox 99.0 F 59 L 18 104/65 98 01/17/18 08:35 01/17/18 08:35 01/17/18 08:35 01/17/18 08:35 01/17/18 08:35 - Medications Medications: Current Medications Enoxaparin Sodium (Lovenox) 40 mg SC DAILY [facility] PRN Reason: Protocol Last Admin: 01/16/18 08:43 Dose: 40 mg Sodium Chloride (Sodium Chloride 0.9%) 1,000 mls @ 150 mls/hr IV .Q6H40M COUNT INCLUDES THE [facility] Stop: 01/18/18 07:17 Last Admin: 01/17/18 09:44 Dose: 150 mls/hr Ketorolac Tromethamine (Toradol) 30 mg IVP Q6 PRN PRN Reason: Pain, moderate (4-7) Last Admin: 01/16/18 23:49 Dose: 30 mg Morphine Sulfate (Morphine) 4 mg IVP Q4 PRN PRN Reason: Pain, severe (8-10) Last Admin: 01/14/18 06:11 Dose: 4 mg Senna/Docusate Sodium (Senokot S 50 Mg-8.6 Mg) 2 tab PO HS [facility] - Labs Labs: 01/17/18 04:00 01/17/18 04:00 PT 12.2 Seconds (9.8-13.1) 01/15/18 05:50 INR 1.1 (0.9-1.2) 01/15/18 05:50 APTT 27.2 Seconds (25.6-37.1) 01/15/18 05:50 - Constitutional Appears: Well, No Acute Distress - Eye Exam Eye Exam: EOMI - Neck Exam Neck Exam: Full ROM - Respiratory Exam Respiratory Exam: Clear to Ausculation Bilateral, NORMAL BREATHING PATTERN. absent: Wheezes - Cardiovascular Exam Cardiovascular Exam: REGULAR RHYTHM, +S1, +S2 - GI/Abdominal Exam GI & Abdominal Exam: Soft, Normal Bowel Sounds. absent: Tenderness - Extremities Exam Extremities Exam: absent: Calf Tenderness Additional comments: Limited ROM 2/2 planned surgery and orders for NWB. Pt able to move toes and sensation is grossly intact. - Neurological Exam Neurological Exam: Alert, Awake, CN II-XII Intact, Oriented x3 - Psychiatric Exam Psychiatric exam: Normal Affect, Normal Mood Assessment and Plan - Assessment and Plan (Free Text) Plan: 42 y/o woman w/ pmh of pre-diabetes presents to ED w/ left leg pain. Due to closed displaced left bimalleolar ankle fracture Left leg/foot pain - closed displaced left bimalleolar ankle fracture s/p fall - ankle XR: further displacement bimalleolar ankle fracture, with fragmentation of proximal end of fibular fracture - tibia/fibula XR: no tibial fracture observed, partial view of fragmentation of fibular fracture - admit to MedSur - podiatry recommendations appreciated - Posterior splint reapplied to LLE - patient to be strict NWB with no OOB privileges - RICE therapy - PT/OT eval - EKG: NSR - CT lower extremity: bimaleolar fractures; sublexation at the level of the ankle mortise - pain management: toradol 30 mg IV Q6h prn (moderate pain), morphine 4 mg IV Q4h prn (severe pain) - UA: neg - Medically optimized for surgery - Surgery: planned for 01/17/2018 at 12:30 for L ankle ORIF - monitor for acute changes Diet - NPO at midnight 01/17/2018: for surgery - resume liquid diet at dinner and progress as tolerated Prophylactic measures DVT: lovenox 40 mg SC daily; hold today for surgery Bowel movement last night s/p PT eval
--- NOTE | 2018-01-17 11:10 | CP.PCM.PN ---
Subjective - Date & Time of Evaluation Date of Evaluation: 01/17/18 Time of Evaluation: 10:39 - Subjective Subjective: 42 y/o female seen at bedside with attending Dr. Stone for left bimalleolar ankle fracture. Pt's daughter at bedside and confirms pt NPO status today. Pt has been seen by physical therapy and is doing well with a walker. Denies F/C/N/ V/CP/SOB. Denies pain to the left lower extremity today. Objective - Vital Signs/Intake and Output Vital Signs (last 24 hours): Temp Pulse Resp BP Pulse Ox 99.0 F 59 L 18 104/65 98 01/17/18 08:35 01/17/18 08:35 01/17/18 08:35 01/17/18 08:35 01/17/18 08:35 - Medications Medications: Current Medications Enoxaparin Sodium (Lovenox) 40 mg SC DAILY [facility] PRN Reason: Protocol Last Admin: 01/16/18 08:43 Dose: 40 mg Sodium Chloride (Sodium Chloride 0.9%) 1,000 mls @ 150 mls/hr IV .Q6H40M [facility] Stop: 01/18/18 07:17 Last Admin: 01/17/18 09:44 Dose: 150 mls/hr Ketorolac Tromethamine (Toradol) 30 mg IVP Q6 PRN PRN Reason: Pain, moderate (4-7) Last Admin: 01/16/18 23:49 Dose: 30 mg Morphine Sulfate (Morphine) 4 mg IVP Q4 PRN PRN Reason: Pain, severe (8-10) Last Admin: 01/14/18 06:11 Dose: 4 mg Senna/Docusate Sodium (Senokot S 50 Mg-8.6 Mg) 2 tab PO HS [facility] - Labs Labs: 01/17/18 04:00 01/17/18 04:00 PT 12.2 Seconds (9.8-13.1) 01/15/18 05:50 INR 1.1 (0.9-1.2) 01/15/18 05:50 APTT 27.2 Seconds (25.6-37.1) 01/15/18 05:50 - Constitutional Appears: Well, Non-toxic, No Acute Distress - Extremities Exam Additional comments: posterior splint clean dry and intact to LLE pt able to wiggle toes without difficulty - Neurological Exam Neurological Exam: Alert, Awake, Oriented x3 - Psychiatric Exam Psychiatric exam: Normal Affect, Normal Mood Assessment and Plan - Assessment and Plan (Free Text) Assessment: 42 y/o female with displaced left bimalleolar ankle fracture to go to OR at 12: 30pm today with Dr. Stone for left ankle ORIF with syndesmotic repair Plan: Pt seen and evaluated at bedside All risks, benefits, alternatives and complications discussed with patient Written consent signed by patient, in chart Medical clearance in chart NPO status confirmed Podiatry will continue to follow patient Pt to remain NWB to LLE postoperatively with use of rolling walker Pt to keep posterior splint clean, dry and intact Upon discharge, pt to follow up with Dr. Stone in [facility] podiatry clinic within 1 week of discharge
[2018-01-17] MEDS ORDERED: Rocuronium 10 mg/ml (5 ml) ONE (12:05)
[2018-01-17] MEDS ORDERED: ePHEDrine 50 mg/ml Inj ONE (12:05)
[2018-01-17] MEDS ORDERED: Propofol 10 mg/ml Inj (20 ML) ONE (12:05)
[2018-01-17] MEDS ORDERED: Midazolam 2 MG/2 ML VIAL ONE (12:05)
[2018-01-17] MEDS ORDERED: Lidocaine 4% (Laryng-O-Jet) Kit MM ONE (12:06)
[2018-01-17] MEDS ORDERED: Succinylcholine 200 mg/10 ml Inj IV ONE (12:06)
[2018-01-17] MEDS ORDERED: Lidocaine Hydrochloride 1% 0 ML ONE (12:16)
[2018-01-17] MEDS ORDERED: Bupivacaine 0.5% Inj(30mL) ONE (12:16)
[2018-01-17] MEDS ORDERED: Bupivacaine HCl 0.25% PF (10 ml) Inj ONE (12:20)
[2018-01-17] MEDS ORDERED: Ropivacaine 0.5% 30ML IV ONE (12:20)
[2018-01-17] MEDS ORDERED: Lactated Ringer's 1,000 ML IV ONE ×2 (12:42→16:00)
--- NOTE | 2018-01-17 15:05 | PCM.ANESB2 ---
Popliteal Nerve Block - Popliteal Nerve Block Date of Procedure: 01/17/18 Anesthesiologist: Dr. Ray Pre-Procedure Diagnosis: Left ankle fracture Post-Procedure Diagnosis: Left ankle fracture Procedure Performed: Popliteal Nerve Block Left - Procedure Popliteal Nerve Block: This procedure was explained to the patient that it is for post-operative pain management. Consent was obtained after a thorough discussion with the patient regarding the benefits and possible complications of local anesthetic block of the sciatic nerve at the popliteal level. The patient was brought to the operating room and standard monitors are applied. Time-out was held with the circulating nurse to confirm the correct surgery and the appropriate block. After applying oxygen by maskand administering general anesthesia, patient's operative leg was gently raised and supported and the groove in between the biceps femoris and vastus lateralis muscles was carefully palpated. The skin approximately 8cm above the popliteal crease was then marked. The ultrasound transducer was then applied to the posterior thigh approximately 8cm above the popliteal crease in the transverse plane and the sciatic nerve before its division was visualized lateral to the popliteal artery and in between the bicep femoris and semimembranosus/semitendinosus muscles. After identification, the lateral portion of the thigh was prepped with Chloraprep solution. At this point, a # 21 gauge Stimuplex insulated 4 inch needle was inserted into pre-marked area and advanced in a perpendicular direction. The needle was inserted above the ultrasound transducer in-plane towards the sciatic nerve in a [id number] direction. Needle advancement was performed carefully under direct ultrasound visualization. Nerve stimulator was used and dorsiflexion of the left foot was elicited at a current of 0.3 MA. After repeated negative aspiration, 5cc of 0.5% Ropivacaine was injected and this was flowed with 15cc of 0.5% Ropivacaine. Under ultrasound guidance the local anesthetics were observed surrounding sciatic nerve . The needle was removed intact and sterile dressing was applied. The patient tolerated the popliteal nerve block well with stable vital signs and was subsequently prepared for the surgery.
--- NOTE | 2018-01-17 15:10 | PCM.ANESB7 ---
Adductor Canal Block - Adductor Canal Block Date of Procedure: 01/17/18 Anesthiologist: Dr. Ray Pre-Procedure Diagnosis: Left ankle fracture Post-Procedure Diagnosis: Left ankle fracture Procedure Performed: Adductor Canal Block Left - Procedure Adductor Canal Block: The procedure was explained to the patient that it is for the post-operative pain management. Consent was obtained after a thorough discussion with the patient regarding the benefits and possible complications of local anesthetic adductor canal block of the femoral nerve. Standard monitors, as defined by the ASA, were applied to the patient. Time-out was held with the circulating nurse to confirm the appropriate block. After applying supplemental oxygen and administering general anesthesia, the patient was placed in supine position with and the operative leg was flexed slightly at the knee and externally rotated as needed, and was kept anatomically stable. The mid-thigh of the left lower extremity was exposed. The ultrasound transducer was then applied transversely along the medial aspect, about midway down the thigh and the femoral artery and vein were identified in appropriate relation with the sartorius muscle. At this time, the femoral nerve was visualized lateral to the femoral artery within the canal. After thorough identification, this area area was prepped with Chloroprep solution. At this point, a #22 gauge Stimuplex 4-inch needle was inserted in-plane in a [id number] orientation, and advanced toward the femoral artery. Advancement was performed carefully under direct ultrasound visualization. After negative aspiration, 5cc of 0.25% Bupivacaine was injected and this was followed with 15cc of 0.25% Bupivacaine. Under ultrasound guidance the local anesthetics were observed spreading around the femoral nerve. The needle was removed intact and sterile dressing was applied. The patient had stable vital signs, was conscious and in no apparent distress. The patient tolerated the femoral nerve block well with stable vital signs and was prepared for subsequent surgery
--- NOTE | 2018-01-17 15:46 | PCM.SURG1 ---
Surgeon's Initial Post Op Note - Surgeon's Notes Surgeon: Dr. Stone Citizenship Teacher: Dr. Stoll PGY-3, Dr. Mcconnell PGY-2, Dr. Lyons PGY-2, Dr. Pedraza PGY-1 Type of Anesthesia: General Endo, Block Regional Anesthesia Administered By: Dr. Ray/Dr. Marquez Pre-Operative Diagnosis: left bimalleolar ankle fracture Operative Findings: see operative report. I: none. M: 44mm 4.5 partially threated cannulated screw, 52mm 4.5 partially threaded cannulated screw, 16mm 3.5 cortical locking screw, 10mm 3.5 locking screw, 12mm 3.5 locking screw, 14mm 3.5 locking screw, 3.5mm 7 hole LCP plate, Arthrex knotless syndesmosis stainless steel TightRope, 2-0 Vicryl, 4-0 Vicryl, 4-0 Nylon. Tourniquet time: 125 min at 350mm Hg Post-Operative Diagnosis: same Operation Performed: open reduction with internal fixation of left ankle fracture, repair of ankle syndesmosis with Arthrex TightRope Specimen/Specimens Removed: none Estimated Blood Loss: EBL {In ML}: 15 Blood Products Given: N/A Drains Used: No Drains Post-Op Condition: Good Date of Surgery/Procedure: 01/17/18 Time of Surgery/Procedure: 13:10
[2018-01-17] MEDS ORDERED: Oxycodone/Acetaminophen 5/325 mg Tab PO PRN (16:02)
[2018-01-17] MEDS ORDERED: Lactated Ringer's 1,000 ML IV SCH (16:45)
--- NOTE | 2018-01-17 19:35 | RAD ---
PROCEDURE: Left Ankle Radiographs. HISTORY: s/p left ankle surgery COMPARISON: Left ankle radiographs 01/14/2018. FINDINGS: BONES: Pain status post open reduction internal fixation of medial malleolar and distal fibular fractures by compression screws at the medial malleolus and compression plate and multiple screws at the distal left fibula. JOINTS: Ankle mortise appears normalized with prior subluxation reduced. SOFT TISSUES: Postop changes are identified. OTHER FINDINGS: None. IMPRESSION: Status post ORIF reducing distal left fibular and medial malleolar fractures as well as lateral talar subluxation/dislocation.
[2018-01-17] MEDS: Docusate-Senna 50 mg-8.6 mg Tab PO SCH (22:19)
[2018-01-18] MEDS: Oxycodone/Acetaminophen 5/325 mg Tab PO PRN ×2 (03:29→09:13)
[2018-01-18 07:18] LABS: HEMOGLOBIN 9.1 g/dL (12.0-16.0); MEAN CELL VOLUME 74.5 fl (81.0-99.0); MEAN CORPUSCULAR HEMOGLOBIN 23.9 pg (27.0-31.0); RBC 3.8 Mil/uL (3.80-5.20); RED CELL DISTRIBUTION WIDTH 16.5 % (11.5-14.5); WHITE BLOOD COUNT 7.8 K/uL (4.8-10.8)
[2018-01-18 07:57] LABS: ALB/GLOB RATIO 1.1 (1.0-2.1); ALBUMIN 3.3 g/dL (3.5-5.0); ALT/SGPT 68 U/L (9-52); AST/SGOT 45 U/L (14-36); BLOOD UREA NITROGEN 10 mg/dl (7-17); CALCIUM 8.8 mg/dL (8.4-10.2); GFR AFRICAN-AMERICAN > 60; GFR NON-AFRICAN AMERICAN > 60
[2018-01-18] MEDS ORDERED: Enoxaparin 100 mg Syringe SC ONE (09:48)
[2018-01-18] MEDS: Pantoprazole 40 mg EC Tab PO SCH (10:05)
--- NOTE | 2018-01-18 10:25 | CP.PCM.PN ---
Subjective - Date & Time of Evaluation Date of Evaluation: 01/18/18 Time of Evaluation: 10:25 Objective - Vital Signs/Intake and Output Vital Signs (last 24 hours): Temp Pulse Resp BP Pulse Ox 99.7 F H 86 18 114/64 97 01/18/18 08:27 01/18/18 08:27 01/18/18 08:27 01/18/18 08:27 01/18/18 08:27 - Medications Medications: Current Medications Acetaminophen (Tylenol 325mg Tab) 650 mg PO Q4 PRN PRN Reason: Pain, Mild (1-3) Acetaminophen (Tylenol 325mg Tab) 650 mg PO Q6 PRN PRN Reason: Fever >100.4 F Last Admin: 01/18/18 05:52 Dose: 650 mg Lactated Ringer's (Lactated Ringer's) 1,000 mls @ 100 mls/hr IV .Q10H [facility] Last Admin: 01/17/18 21:08 Dose: 100 mls/hr Ketorolac Tromethamine (Toradol) 30 mg IVP Q6 PRN PRN Reason: Pain, moderate (4-7) Last Admin: 01/16/18 23:49 Dose: 30 mg Morphine Sulfate (Morphine) 4 mg IVP Q4 PRN PRN Reason: Pain, severe (8-10) Last Admin: 01/14/18 06:11 Dose: 4 mg Oxycodone/Acetaminophen (Percocet 5/325 Mg Tab) 1 tab PO Q4 PRN PRN Reason: Pain, moderate (4-7) Stop: 01/20/18 16:03 Last Admin: 01/18/18 09:13 Dose: 1 tab Oxycodone/Acetaminophen (Percocet 5/325 Mg Tab) 2 tab PO Q4 PRN PRN Reason: Pain, severe (8-10) Stop: 01/20/18 16:03 Pantoprazole Sodium (Protonix Ec Tab) 40 mg PO DAILY [facility] Last Admin: 01/18/18 10:05 Dose: 40 mg Senna/Docusate Sodium (Senokot S 50 Mg-8.6 Mg) 2 tab PO HS [facility] Last Admin: 01/17/18 22:19 Dose: 2 tab - Labs Labs: 01/18/18 07:05 01/18/18 07:05 PT 12.2 Seconds (9.8-13.1) 01/15/18 05:50 INR 1.1 (0.9-1.2) 01/15/18 05:50 APTT 27.2 Seconds (25.6-37.1) 01/15/18 05:50
--- NOTE | 2018-01-18 10:28 | CARD ---
APPROVED REPORT EKG Measurement Heart [id number] <Conclusion> Normal sinus rhythm Normal ECG
[2018-01-18] MEDS ORDERED: Iodixanol 320 MG/ML 100 ML BOTTLE IV ONE (10:32)
--- NOTE | 2018-01-18 11:05 | CP.PCM.PN ---
Subjective - Date & Time of Evaluation Date of Evaluation: 01/18/18 Time of Evaluation: 09:20 - Subjective Subjective: Pt was seen and evaluated at beside this am. Denied overnight events, however, reported slight epigastric tenderness radiating to neck this morning. Tenderness is pressure like and exacerbated with deep inspiration and trying to sit up. Pt reports associated SOB. Objective - Vital Signs/Intake and Output Vital Signs (last 24 hours): Temp Pulse Resp BP Pulse Ox 99.6 F 88 16 119/65 98 01/18/18 10:45 01/18/18 10:45 01/18/18 10:45 01/18/18 10:45 01/18/18 10:45 - Medications Medications: Current Medications Acetaminophen (Tylenol 325mg Tab) 650 mg PO Q4 PRN PRN Reason: Pain, Mild (1-3) Acetaminophen (Tylenol 325mg Tab) 650 mg PO Q6 PRN PRN Reason: Fever >100.4 F Last Admin: 01/18/18 05:52 Dose: 650 mg Lactated Ringer's (Lactated Ringer's) 1,000 mls @ 100 mls/hr IV .Q10H [facility] Last Admin: 01/17/18 21:08 Dose: 100 mls/hr Ketorolac Tromethamine (Toradol) 30 mg IVP Q6 PRN PRN Reason: Pain, moderate (4-7) Last Admin: 01/16/18 23:49 Dose: 30 mg Morphine Sulfate (Morphine) 4 mg IVP Q4 PRN PRN Reason: Pain, severe (8-10) Last Admin: 01/14/18 06:11 Dose: 4 mg Oxycodone/Acetaminophen (Percocet 5/325 Mg Tab) 1 tab PO Q4 PRN PRN Reason: Pain, moderate (4-7) Stop: 01/20/18 16:03 Last Admin: 01/18/18 09:13 Dose: 1 tab Oxycodone/Acetaminophen (Percocet 5/325 Mg Tab) 2 tab PO Q4 PRN PRN Reason: Pain, severe (8-10) Stop: 01/20/18 16:03 Pantoprazole Sodium (Protonix Ec Tab) 40 mg PO DAILY [facility] Last Admin: 01/18/18 10:05 Dose: 40 mg Senna/Docusate Sodium (Senokot S 50 Mg-8.6 Mg) 2 tab PO HS [facility] Last Admin: 01/17/18 22:19 Dose: 2 tab - Labs Labs: 01/18/18 07:05 01/18/18 07:05 PT 12.2 Seconds (9.8-13.1) 01/15/18 05:50 INR 1.1 (0.9-1.2) 01/15/18 05:50 APTT 27.2 Seconds (25.6-37.1) 01/15/18 05:50 - Eye Exam Eye Exam: EOMI - Neck Exam Neck Exam: Full ROM - Respiratory Exam Respiratory Exam: Clear to Ausculation Bilateral, NORMAL BREATHING PATTERN. absent: Wheezes - Cardiovascular Exam Cardiovascular Exam: REGULAR RHYTHM, +S1, +S2 Additional comments: jeffery sternal tenderness to palpation. - GI/Abdominal Exam GI & Abdominal Exam: Soft, Tenderness (epigastric tenderness on deep palpation) - Extremities Exam Extremities Exam: Calf Tenderness (L), Normal Capillary Refill (<2 seconds) - Neurological Exam Neurological Exam: Abnormal Gait (2/2 to recent L ORIF of ankle), Alert, Awake, Oriented x3 - Psychiatric Exam Psychiatric exam: Normal Affect, Normal Mood Assessment and Plan - Assessment and Plan (Free Text) Plan: 42 y/o woman w/ pmh of pre-diabetes POD 1 ORIF of L ankle fracture. Repair of ankle syndesmosis with Arthrex TightRope. Left leg/foot pain - POD 1 ORIF of L ankle fracture. Repair of ankle syndesmosis with Arthrex TightRope. - closed displaced left bimalleolar ankle fracture s/p fall - ankle XR: further displacement bimalleolar ankle fracture, with fragmentation of proximal end of fibular fracture - tibia/fibula XR: no tibial fracture observed, partial view of fragmentation of fibular fracture - admit to MedSurg - podiatry recommendations appreciated - RICE therapy - PT/OT eval and treat - EKG: NSR - CT lower extremity: bimaleolar fractures; sublexation at the level of the ankle mortise - pain management: Acetaminophen, Toradol, percocet - UA: neg - s/p HOSPITAL SALES REPRESENTATIVE: EKG, CTA chest: no PE, Troponin: negative, Lovenox 90 (weight based) , doppler L lower extremity: negative for DVT; protonix 40 mg qD - PT recommend home therapy - monitor for acute changes Diet - Regular Prophylactic measures DVT: lovenox 40 mg SC daily;
--- NOTE | 2018-01-18 12:13 | CP.PCM.PN ---
Subjective - Date & Time of Evaluation Date of Evaluation: 01/18/18 Time of Evaluation: 12:11 - Subjective Subjective: 42 y/o female seen at bedside 1 day s/p left ankle ORIF. Pt seen lying in bed complaining of chest pain earlier today and mild SOB. THREAD ROLLER called at time of visit. CTA of chest ordered to r/o PE. Pt says she is not having any chest pain at time of THREAD ROLLER, strictly pain to the left lower extremity now that the numbness has worn off. States she has remained in bed since surgery. Admits to fever last night for which she received Tylenol. Denies C/N/V. Objective - Vital Signs/Intake and Output Vital Signs (last 24 hours): Temp Pulse Resp BP Pulse Ox 99.6 F 80 16 110/67 98 01/18/18 11:55 01/18/18 11:55 01/18/18 11:55 01/18/18 11:55 01/18/18 11:55 - Medications Medications: Current Medications Acetaminophen (Tylenol 325mg Tab) 650 mg PO Q4 PRN PRN Reason: Pain, Mild (1-3) Acetaminophen (Tylenol 325mg Tab) 650 mg PO Q6 PRN PRN Reason: Fever >100.4 F Last Admin: 01/18/18 05:52 Dose: 650 mg Lactated Ringer's (Lactated Ringer's) 1,000 mls @ 100 mls/hr IV .Q10H [facility] Last Admin: 01/17/18 21:08 Dose: 100 mls/hr Ketorolac Tromethamine (Toradol) 30 mg IVP Q6 PRN PRN Reason: Pain, moderate (4-7) Last Admin: 01/16/18 23:49 Dose: 30 mg Morphine Sulfate (Morphine) 4 mg IVP Q4 PRN PRN Reason: Pain, severe (8-10) Last Admin: 01/14/18 06:11 Dose: 4 mg Oxycodone/Acetaminophen (Percocet 5/325 Mg Tab) 1 tab PO Q4 PRN PRN Reason: Pain, moderate (4-7) Stop: 01/20/18 16:03 Last Admin: 01/18/18 09:13 Dose: 1 tab Oxycodone/Acetaminophen (Percocet 5/325 Mg Tab) 2 tab PO Q4 PRN PRN Reason: Pain, severe (8-10) Stop: 01/20/18 16:03 Pantoprazole Sodium (Protonix Ec Tab) 40 mg PO DAILY [facility] Last Admin: 01/18/18 10:05 Dose: 40 mg Senna/Docusate Sodium (Senokot S 50 Mg-8.6 Mg) 2 tab PO HS [facility] Last Admin: 01/17/18 22:19 Dose: 2 tab - Labs Labs: 01/18/18 07:05 01/18/18 07:05 PT 12.2 Seconds (9.8-13.1) 01/15/18 05:50 INR 1.1 (0.9-1.2) 01/15/18 05:50 APTT 27.2 Seconds (25.6-37.1) 01/15/18 05:50 - Constitutional Appears: Well, Non-toxic, No Acute Distress - Extremities Exam Additional comments: Left lower extremity with posterior splint clean/dry/intact Pt able to wiggle toes without difficulty CFT < 3 sec to all digits of L foot - Neurological Exam Neurological Exam: Alert, Awake, Oriented x3 - Psychiatric Exam Psychiatric exam: Normal Affect, Normal Mood Assessment and Plan - Assessment and Plan (Free Text) Assessment: 42 y/o female 1 day s/p left bimalleolar ankle fracture ORIF Labs and vitals reviewed- T max 101.1 overnight, resolving today AM Posterior splint to remain C/D/I to LLE CTA chest found to be negative for PE - pt given therapeutic dose of Lovenox Postoperative x-rays of L ankle reviewed revealing good reduction of displaced fibular and medial malleolar fractures with stable internal fixation Pt to continue gait training with use of rolling walker with PT Will continue to follow pt while in house Pt stable for discharge per podiatry once cleared by physical therapy and stable for discharge home Upon d/c, pt to follow up in [facility] podiatry clinic with Dr. Stone on Wednesday 01/24
--- NOTE | 2018-01-18 12:16 | CT ---
PROCEDURE: CT Chest with contrast (Pulmonary Angiogram) HISTORY: chest, SOB, fever COMPARISON: None available. TECHNIQUE: Axial computed tomography images were obtained of the chest in the pulmonary arterial phase of enhancement. Coronal and sagittal reformatted images were created and reviewed. Intravenous contrast dose: 99 cc Visipaque 320 Radiation dose: Total exam DLP = 399.93 mGy-cm. This CT exam was performed using one or more of the following dose reduction techniques: Automated exposure control, adjustment of the mA and/or kV according to patient size, and/or use of iterative reconstruction technique. FINDINGS: PULMONARY ARTERIES: Evaluation of the pulmonary arteries is limited technically due to suboptimal opacification of pulmonary arteries relative to timing of the scan. No evidence of filling defect within the main and lobar pulmonary arteries. Segmental and subsegmental pulmonary artery branches are suboptimally evaluated on the basis of this examination. AORTA: No acute findings. No thoracic aortic aneurysm. There is borderline dilatation of the main pulmonary artery to a diameter of 3.2 cm. This may correlate with pulmonary arterial hypertension. LUNGS: 6 mm pleural-based nodule in the lateral segment right middle lobe. Although this may represent small linear pleural-based scar, a followup is advised as per Fleischner society criteria with noncontrast CT examination 6-12 months. No other pulmonary mass is identified. No pulmonary infiltrate. PLEURAL SPACES: Unremarkable. No effusion or pneuomothorax. HEART: Unremarkable. No cardiomegaly. No significant pericardial effusion. LYMPH NODES: No lymphadenopathy. BONES, CHEST WALL: Unremarkable. No fracture or destructive lesion OTHER FINDINGS: Unremarkable. IMPRESSION: Limited examination. No evidence of large central pulmonary embolus. Limited evaluation of segmental/subsegmental pulmonary artery branches as described. Incidental 6 mm pleural-based nodule lateral segment right middle lobe. Recommend followup with noncontrast chest CT in 6-12 months. Borderline dilatation of main pulmonary artery as above. No additional abnormality.
--- NOTE | 2018-01-18 12:38 | US ---
PROCEDURE: Left lower extremity duplex venous sonography. HISTORY: Relevant surgical history: Open reduction internal fixation of bimalleolar fracture COMPARISON: None available. TECHNIQUE: Real-time ultrasound scan of the veins with color flow, spectral waveform analysis and compression FINDINGS: Normal flow, augmentation and compressibility were noted. No evidence of deep vein thrombosis. Limitations of the current examination: Posterior tibial and dorsalis pedis vessels not imaged related to postoperative related bandaging. IMPRESSION: Negative study for left lower extremity deep vein thrombosis. Limitations of the current examination: Nonvisualization posterior tibial and left dorsalis pedis veins.
[2018-01-18] MEDS: Morphine 15 mg Immediate Release Tab PO PRN ×3 (13:23→22:56)
--- NOTE | 2018-01-18 13:45 | PCM.RRT ---
<Adam Ho - Last Filed: 01/18/18 13:59> EXPERIMENTAL FLIGHT TEST MECHANIC Nurse Assessment - Situation EXPERIMENTAL FLIGHT TEST MECHANIC Responder Arrival Time: 09:45 Location: 5 Room Number: [id number] EXPERIMENTAL FLIGHT TEST MECHANIC Reason for Call: Chest Pain EXPERIMENTAL FLIGHT TEST MECHANIC Called By: RN, Physician - IV IV Inserted during EXPERIMENTAL FLIGHT TEST MECHANIC?: No - Respiratory Oxygen Delivery Method: Mask Received Nebulizer Treatments: No Was the Patient Ventilated with Bag/Mask 100% O2?: No Secretions Suctioned?: No Was the Patient Intubated?: No Was the Patient Placed on a Ventilator?: No - Diagnostic Test Ordered EKG: Yes Chest X-Ray: No CT Scan: Yes (ct chest) - Stat Labs Ordered EXPERIMENTAL FLIGHT TEST MECHANIC Stat Labs Ordered: TROPONIN CPR started during EXPERIMENTAL FLIGHT TEST MECHANIC?: No - Vital Signs Vital Signs: Rapid Response Vital Sign Blood Pressure 134/69 Pulse Rate 84 Respiratory Rate 19 Oxygen Saturation 100 - Time EXPERIMENTAL FLIGHT TEST MECHANIC Ended Time EXPERIMENTAL FLIGHT TEST MECHANIC Ended: 10:00 - Vital Signs at end of EXPERIMENTAL FLIGHT TEST MECHANIC Vital Signs at end of EXPERIMENTAL FLIGHT TEST MECHANIC: Rapid Response End Vital Sign Blood Pressure 134/69 Pulse Rate 86 Respiratory Rate 18 O2 Sat by Pulse Oximetry 100 - Recommendations EXPERIMENTAL FLIGHT TEST MECHANIC Level of Care Recommendations: Remain in current setting I.Reason for EXPERIMENTAL FLIGHT TEST MECHANIC - A) Acute Change in Patient: (Select all that apply): Staff member or family is worried about patient - Neurological Status (Select all that apply): Responsive - Constitutional Appears: No Acute Distress - Head Head Exam: NORMAL INSPECTION - Eyes Eye Exam: EOMI, PERRL - Respiratory Exam Respiratory Exam: Clear to Ausculation Bilateral, NORMAL BREATHING PATTERN. absent: Chest Wall Tenderness - Cardiovascular Exam Cardiovascular Exam: REGULAR RHYTHM, +S1, +S2. absent: Tachycardia - GI/Abdominal Exam GI & Abdominal Exam: Soft, Normal Bowel Sounds. absent: Distended, Tenderness - Neurological Exam Neurological Exam: Awake, Oriented x3 - Extremities Exam Extremities Exam: Pedal Edema. absent: Calf Tenderness Plan - Assessment of Findings&Treatment Plan 42 yo F patient w/ pmh of pre-diabetes s/p POD 1 ORIF of L ankle fracture with chest pain and sob. Patient is responsive and able to follow commands. She states that chest pain is radiating to her neck and exacerbated with deep inspiration. Afebrile, no cough, dizziness, headache or abdominal pain, no palpitations. Initial VS: RR 18, HR 88, BP 123/69 Sat 97% RA. Final VS: RR 20, HR 90, BP 113/71, Sat 98% by mask 2L. A/P: 42 yo F patient w/ pmh of pre-diabetes s/p POD 1 ORIF of L ankle fracture with chest pain and sob. r/o PE r/o ACS - EKG - CTA chest - troponin x3 - lovenox 90 mg SC once - Patient remain in current setting. <EldrdigeAngelina - Last Filed: 01/18/18 15:28> EXPERIMENTAL FLIGHT TEST MECHANIC Nurse Assessment - Vital Signs Vital Signs: Rapid Response Vital Sign Blood Pressure 134/69 Pulse Rate 84 Respiratory Rate 19 Oxygen Saturation 100 - Vital Signs at end of EXPERIMENTAL FLIGHT TEST MECHANIC Vital Signs at end of EXPERIMENTAL FLIGHT TEST MECHANIC: Rapid Response End Vital Sign Blood Pressure 134/69 Pulse Rate 86 Respiratory Rate 18 O2 Sat by Pulse Oximetry 100 Attending/Attestation - Attestation I have personally seen and examined this patient.: Yes I have fully participated in the care of the patient.: Yes I have reviewed all pertinent clinical information, including history, physical exam and plan: Yes Notes (Text): EXPERIMENTAL FLIGHT TEST MECHANIC called for CP and SOB Pt seen and examined with the residents Pt is awake , alert, oriented, not in distress Saturation 97 on RA , no Tachycardia EKG : no change A/P 1. CP and SOB - CTA oc hest to r/o PE, Doppler US LE - Give one dose therapeutic Lovenox - Trop x 3 - Incentive Spirometry -PPI
[2018-01-19] MEDS: Docusate-Senna 50 mg-8.6 mg Tab PO SCH ×3 (00:18→22:21)
[2018-01-19] MEDS: Morphine 15 mg Immediate Release Tab PO PRN ×2 (06:29→15:44)
[2018-01-19 07:53] LABS: HEMOGLOBIN 9.5 g/dL (12.0-16.0); MEAN CELL VOLUME 74.8 fl (81.0-99.0); MEAN CORPUSCULAR HEMOGLOBIN 23.9 pg (27.0-31.0); MEAN CORPUSCULAR HGB CONC 31.9 g/dL (33.0-37.0); RBC 3.97 Mil/uL (3.80-5.20); RED CELL DISTRIBUTION WIDTH 16.6 % (11.5-14.5); WHITE BLOOD COUNT 7.1 K/uL (4.8-10.8)
--- NOTE | 2018-01-19 07:54 | CP.PCM.PN ---
Subjective - Date & Time of Evaluation Date of Evaluation: 01/19/18 Time of Evaluation: 08:15 Objective - Vital Signs/Intake and Output Vital Signs (last 24 hours): Temp Pulse Resp BP Pulse Ox 100.3 F H 84 20 110/60 97 01/19/18 05:00 01/19/18 05:00 01/19/18 05:00 01/19/18 05:00 01/19/18 05:00 - Medications Medications: Current Medications Acetaminophen (Tylenol 325mg Tab) 650 mg PO Q4 PRN PRN Reason: Pain, Mild (1-3) Acetaminophen (Tylenol 325mg Tab) 650 mg PO Q6 PRN PRN Reason: Fever >100.4 F Last Admin: 01/18/18 15:55 Dose: 650 mg Alprazolam (Xanax) 0.25 mg PO Q8 PRN PRN Reason: Anxiety Stop: 01/25/18 12:52 Enoxaparin Sodium (Lovenox) 40 mg SC DAILY [facility] PRN Reason: Protocol Lactated Ringer's (Lactated Ringer's) 1,000 mls @ 100 mls/hr IV .Q10H [facility] Last Admin: 01/17/18 21:08 Dose: 100 mls/hr Ketorolac Tromethamine (Toradol) 30 mg IVP Q6 PRN PRN Reason: Pain, moderate (4-7) Last Admin: 01/18/18 18:36 Dose: 30 mg Morphine Sulfate (Morphine) 4 mg IVP Q4 PRN PRN Reason: Pain, severe (8-10) Last Admin: 01/14/18 06:11 Dose: 4 mg Morphine Sulfate (Morphine Immediate Release Tab) 15 mg PO Q4 PRN PRN Reason: Pain, moderate (4-7) Last Admin: 01/19/18 06:29 Dose: 15 mg Oxycodone/Acetaminophen (Percocet 5/325 Mg Tab) 2 tab PO Q4 PRN PRN Reason: Pain, severe (8-10) Stop: 01/20/18 16:03 Pantoprazole Sodium (Protonix Ec Tab) 40 mg PO DAILY [facility] Last Admin: 01/18/18 10:05 Dose: 40 mg Senna/Docusate Sodium (Senokot S 50 Mg-8.6 Mg) 2 tab PO HS [facility] Last Admin: 01/19/18 00:19 Dose: 2 tab - Labs Labs: 01/18/18 07:05 01/18/18 07:05 PT 12.2 Seconds (9.8-13.1) 01/15/18 05:50 INR 1.1 (0.9-1.2) 01/15/18 05:50 APTT 27.2 Seconds (25.6-37.1) 01/15/18 05:50
[2018-01-19 08:16] LABS: ALB/GLOB RATIO 1.1 (1.0-2.1); ALBUMIN 3.6 g/dL (3.5-5.0); ALT/SGPT 174 U/L (9-52); AST/SGOT 175 U/L (14-36); BLOOD UREA NITROGEN 6 mg/dl (7-17); CALCIUM 8.8 mg/dL (8.4-10.2); GFR AFRICAN-AMERICAN > 60; GFR NON-AFRICAN AMERICAN > 60
[2018-01-19] MEDS ORDERED: Enoxaparin 40 mg Syringe SC SCH (09:00)
--- NOTE | 2018-01-19 09:35 | CP.PCM.PN ---
Subjective - Date & Time of Evaluation Date of Evaluation: 01/19/18 Time of Evaluation: 09:35 - Subjective Subjective: 42 y/o female seen at bedside 2 days s/p left ankle ORIF with Dr. Stone, with posterior splint to LLE. Pt's daughter at bedside, stating she has gotten her mother a walker and a wheelchair for assistance in ambulation once she is discharged. Pt states she is still having some burning pain in the left leg. States pain medications are helping to control it. Has no other pedal complaints. Admits to using incentive spirometer more in the last 24 hours. Denies F/C/N/V/CP/SOB. Objective - Vital Signs/Intake and Output Vital Signs (last 24 hours): Temp Pulse Resp BP Pulse Ox 100.3 F H 86 18 120/74 98 01/19/18 08:30 01/19/18 08:30 01/19/18 08:30 01/19/18 08:30 01/19/18 08:30 - Medications Medications: Current Medications Acetaminophen (Tylenol 325mg Tab) 650 mg PO Q4 PRN PRN Reason: Pain, Mild (1-3) Acetaminophen (Tylenol 325mg Tab) 650 mg PO Q6 PRN PRN Reason: Fever >100.4 F Last Admin: 01/18/18 15:55 Dose: 650 mg Alprazolam (Xanax) 0.25 mg PO Q8 PRN PRN Reason: Anxiety Stop: 01/25/18 12:52 Enoxaparin Sodium (Lovenox) 40 mg SC DAILY [facility] PRN Reason: Protocol Lactated Ringer's (Lactated Ringer's) 1,000 mls @ 100 mls/hr IV .Q10H [facility] Last Admin: 01/17/18 21:08 Dose: 100 mls/hr Ketorolac Tromethamine (Toradol) 30 mg IVP Q6 PRN PRN Reason: Pain, moderate (4-7) Last Admin: 01/18/18 18:36 Dose: 30 mg Morphine Sulfate (Morphine) 4 mg IVP Q4 PRN PRN Reason: Pain, severe (8-10) Last Admin: 01/14/18 06:11 Dose: 4 mg Morphine Sulfate (Morphine Immediate Release Tab) 15 mg PO Q4 PRN PRN Reason: Pain, moderate (4-7) Last Admin: 01/19/18 06:29 Dose: 15 mg Oxycodone/Acetaminophen (Percocet 5/325 Mg Tab) 2 tab PO Q4 PRN PRN Reason: Pain, severe (8-10) Stop: 01/20/18 16:03 Pantoprazole Sodium (Protonix Ec Tab) 40 mg PO DAILY [facility] Last Admin: 01/18/18 10:05 Dose: 40 mg Senna/Docusate Sodium (Senokot S 50 Mg-8.6 Mg) 2 tab PO HS [facility] Last Admin: 01/19/18 00:19 Dose: 2 tab - Labs Labs: 01/19/18 07:25 01/19/18 07:25 PT 12.2 Seconds (9.8-13.1) 01/15/18 05:50 INR 1.1 (0.9-1.2) 01/15/18 05:50 APTT 27.2 Seconds (25.6-37.1) 01/15/18 05:50 - Constitutional Appears: Well, Non-toxic, No Acute Distress - Extremities Exam Additional comments: LLE with posterior splint clean/dry/intact Pt able to wiggle toes without difficulty CFT < 3 sec to all digits - Neurological Exam Neurological Exam: Alert, Awake, Oriented x3 - Psychiatric Exam Psychiatric exam: Normal Affect, Normal Mood Assessment and Plan - Assessment and Plan (Free Text) Assessment: 42 y/o female 2 days s/p ORIF of left displaced bimalleolar ankle fracture Plan: Pt seen and evaluated at bedside Discussed with attending Dr Stone Vitals reviewed- mild post op fevers noted, resolved with Tylenol Pt more stable with use of standing walker; will have wheelchair at home when on her own Pt is to remain NWB with use of walker or wheelchair and keep posterior splint clean, dry and intact to LLE Pt is stable for discharge from podiatry standpoint Pt dispensed prescriptions for postoperative pain management and antibiotic prophylaxis Pt instructed to follow up in [facility] podiatry clinic on Monday 01/[address] Stone
[2018-01-19 10:39] LABS: INR 1.2 (0.9-1.2); PROTHROMBIN TIME 13.4 Seconds (9.8-13.1)
[2018-01-19] MEDS: Pantoprazole 40 mg EC Tab PO SCH (10:47)
[2018-01-19 10:48] LABS: ALB/GLOB RATIO 1.1 (1.0-2.1); ALBUMIN 3.9 g/dL (3.5-5.0); BILIRUBIN,DIRECT 0.3 mg/ml (0.0-0.4)
[2018-01-19 16:18] LABS: HEPATITIS B SURFACE AG Negative (NEGATIVE)
--- NOTE | 2018-01-19 16:21 | CP.PCM.DIS ---
Provider - Provider Date of Admission: 01/14/18 02:36 Attending physician: Leonie Reveles MD Time Spent in preparation of Discharge (in minutes): 20 Diagnosis - Discharge Diagnosis (1) Ankle fracture Status: Acute Hospital Course - Lab Results Lab Results: Most Recent Lab Values WBC 7.1 K/uL (4.8-10.8) 01/19/18 07:25 RBC 3.97 Mil/uL (3.80-5.20) 01/19/18 07:25 Hgb 9.5 g/dL (12.0-16.0) L 01/19/18 07:25 Hct 29.7 % (34.0-47.0) L 01/19/18 07:25 MCV 74.8 fl (81.0-99.0) L 01/19/18 07:25 MCH 23.9 pg (27.0-31.0) L 01/19/18 07:25 MCHC 31.9 g/dL (33.0-37.0) L 01/19/18 07:25 RDW 16.6 % (11.5-14.5) H 01/19/18 07:25 Plt Count 236 K/uL (130-400) 01/19/18 07:25 MPV 8.9 fl (7.2-11.7) 01/14/18 03:50 Neut % (Auto) 56.8 % (50.0-75.0) 01/14/18 03:50 Lymph % (Auto) 32.0 % (20.0-40.0) 01/14/18 03:50 Bath % (Auto) 9.8 % (0.0-10.0) 01/14/18 03:50 Eos % (Auto) 1.1 % (0.0-4.0) 01/14/18 03:50 Baso % (Auto) 0.3 % (0.0-2.0) 01/14/18 03:50 Neut # (Auto) 4.9 K/uL (1.8-7.0) 01/14/18 03:50 Lymph # (Auto) 2.8 K/uL (1.0-4.3) 01/14/18 03:50 Bath # (Auto) 0.9 K/uL (0.0-0.8) H 01/14/18 03:50 Eos # (Auto) 0.1 K/uL (0.0-0.7) 01/14/18 03:50 Baso # (Auto) 0.0 K/uL (0.0-0.2) 01/14/18 03:50 PT 13.4 Seconds (9.8-13.1) H 01/19/18 10:24 INR 1.2 (0.9-1.2) 01/19/18 10:24 APTT 27.2 Seconds (25.6-37.1) 01/15/18 05:50 Sodium 141 mmol/l (132-148) 01/19/18 07:25 Potassium 3.7 MMOL/L (3.6-5.0) 01/19/18 07:25 Chloride 103 mmol/L (98-107) 01/19/18 07:25 Carbon Dioxide 24 mmol/L (22-30) 01/19/18 07:25 Anion Gap 18 (10-20) 01/19/18 07:25 BUN 6 mg/dl (7-17) L 01/19/18 07:25 Creatinine 0.6 mg/dl (0.7-1.2) L 01/19/18 07:25 Est GFR ( Amer) > 60 01/19/18 07:25 Est GFR (Non-Af Amer) > 60 01/19/18 07:25 POC Glucose (mg/dL) 88 mg/dL (65-110) 01/17/18 16:09 Random Glucose 110 mg/dL (65-105) H 01/19/18 07:25 Calcium 8.8 mg/dL (8.4-10.2) 01/19/18 07:25 Total Bilirubin 0.7 mg/dl (0.2-1.3) 01/19/18 10:24 Direct Bilirubin 0.3 mg/ml (0.0-0.4) 01/19/18 10:24 AST 158 U/L (14-36) H 01/19/18 10:24 ALT 174 U/L (9-52) H 01/19/18 10:24 Alkaline Phosphatase 158 U/L (38-126) H 01/19/18 10:24 Ammonia 26 umo/L (11-51) 01/19/18 10:24 Total Creatine Kinase 483 U/L (30-135) H 01/19/18 10:32 Troponin I < 0.0120 ng/mL (0.00-0.120) 01/18/18 22:05 Total Protein 7.5 G/DL (6.3-8.2) 01/19/18 10:24 Albumin 3.9 g/dL (3.5-5.0) 01/19/18 10:24 Globulin 3.6 gm/dL (2.2-3.9) 01/19/18 10:24 Albumin/Globulin Ratio 1.1 (1.0-2.1) 01/19/18 10:24 Urine Color Yellow (YELLOW) 01/16/18 09:45 Urine Clarity Cloudy (Clear) 01/16/18 09:45 Urine pH 5.0 (5.0-8.0) 01/16/18 09:45 Ur Specific [place] 1.017 (1.003-1.030) 01/16/18 09:45 Urine Protein Negative mg/dL (NEGATIVE) 01/16/18 09:45 Urine Glucose (UA) Neg mg/dL (Normal) 01/16/18 09:45 Urine Ketones Negative mg/dL (NEGATIVE) 01/16/18 09:45 Urine Blood Negative (NEGATIVE) 01/16/18 09:45 Urine Nitrate Negative (NEGATIVE) 01/16/18 09:45 Urine Bilirubin Negative (NEGATIVE) 01/16/18 09:45 Urine Urobilinogen 0.2-1.0 mg/dL (0.2-1.0) 01/16/18 09:45 Ur Leukocyte Esterase Neg Deny/uL (Negative) 01/16/18 09:45 Urine RBC (Auto) 1 /hpf (0-3) 01/16/18 09:45 Urine Microscopic WBC 2 /hpf (0-5) 01/16/18 09:45 Ur Squamous Epith Cells 3 /hpf (0-5) 01/16/18 09:45 Blood Type O POSITIVE 01/17/18 11:28 Antibody Screen Negative 01/17/18 11:28 BBK History Checked Patient has bt 01/17/18 11:28 - Hospital Course Hospital Course: 42 y/o woman w/ pmh of pre-diabetes POD 2 ORIF of L ankle fracture. pt stable. pain controlled. Ambulating with walker with help of PT. pt to f/u as a new patient in clinic with Dr. Ho Discharge Exam - Head Exam Head Exam: NORMAL INSPECTION - Eye Exam Eye Exam: EOMI - Respiratory Exam Respiratory Exam: Clear to PA & Lateral, Wheezes, NORMAL BREATHING PATTERN - Cardiovascular Exam Cardiovascular Exam: REGULAR RHYTHM, +S1, +S2 - GI/Abdominal Exam GI & Abdominal Exam: Normal Bowel Sounds, Soft. absent: Tenderness - Neurological Exam Neurological exam: Abnormal Gait (2/2 to ORIF of L ankle), Alert, CN II-XII Intact, Oriented x3 - Psychiatric Exam Psychiatric exam: Normal Affect, Normal Mood Discharge Plan - Discharge Medications Prescriptions: Acetaminophen [Tylenol 325mg tab] 650 mg PO Q6 PRN #20 tab PRN Reason: Fever >100.4 F Docusate Sodium/Sennosides A [Senokot S 50 MG-8.6 MG] 2 tab PO HS #5 tab Naproxen 375 mg PO PRN PRN #30 tablet PRN Reason: Pain, Moderate (4-7) Pantoprazole [Protonix EC Tab] 40 mg PO DAILY #30 ect - Follow Up Plan Condition: STABLE Disposition: HOME/ ROUTINE Instructions: Ankle Fracture, How to Wash Your Hands Properly Additional Instructions: follow up at [facility] clinic 02/22/18 2pm
[2018-01-19 16:24] LABS: HEPATITIS A IGM NEGATIVE (NEGATIVE); HEPATITIS B CORE AB NEGATIVE (NEGATIVE)
[2018-01-19 16:36] LABS: HEPATITIS C ANTIBODY NEGATIVE (NEGATIVE)
[2018-01-19 21:58] VITALS: BP 125/74; PULSE 79; RESP 18; TEMP 99.4; O2SAT 99
[2018-01-20 01:09] LABS: SQUAMOUS EPITHIAL 4 /hpf (0-5); URINE BACTERIA OCC (<OCC); URINE BILIRUBIN NEGATIVE (NEGATIVE); URINE BLOOD LARGE (NEGATIVE); URINE CLARITY SLIGHTY-CLOUDY (Clear); URINE COLOR YELLOW (YELLOW); URINE GLUCOSE (UA) NEG (Normal); URINE LEUKOCYTE ESTERASE NEG Leu/uL (Negative); URINE PROTEIN NEGATIVE (NEGATIVE); URINE UROBILINOGEN 0.2-1.0 mg/dL (0.2-1.0)
--- NOTE | 2018-01-23 07:00 | OP ---
PROCEDURE DATE: 01/17/2018 PREOPERATIVE DIAGNOSIS: Left ankle bimalleolar fracture with syndesmotic injury. POSTOPERATIVE DIAGNOSIS: Left ankle bimalleolar fracture with syndesmotic injury. PROCEDURE PERFORMED: Open reduction internal fixation of left ankle bimalleolar fracture and syndesmotic injury. SURGEON: Ricardo Stone DPM ASSISTANTS: 1. Kiko Stoll DPM, PGY-3. 2. Abbie Lyons DPM, PGY-2. 3. Hortensia Mcconnell DPM, PGY-2. TYPE OF ANESTHESIA: General. INDICATIONS: This patient is a 42-year-old female with the aforementioned diagnosis. The patient suffered a traumatic injury to the left ankle and seeks surgical intervention at this time. Diagnostic imaging was used to confirm a bimalleolar ankle fracture of the left ankle with syndesmotic injury. All alternatives, benefits, complications, and risks of the surgical procedure were explained in detail to the patient at length. The patient verbalized understanding and wished to proceed. All questions were addressed and answered. No guarantees were given nor implied. The consent was signed and the n.p.o. status was confirmed prior to bringing the patient to the operating room. OPERATIVE PROCEDURE: The patient was brought to the operating room and placed on the operating room table in the supine position. A pneumatic thigh tourniquet was applied to the patient's left thigh after induction of general anesthesia. The left lower extremity was prepped and draped in the normal sterile manner and the procedure began. An open reduction internal fixation of left ankle bimalleolar ankle fracture and syndesmotic injury: Attention was directed to the lateral aspect of the patient's distal fibula where a linear incision was made utilizing the #15 blade. The incision was deep into the superficial and subcutaneous tissue utilizing sharp and blunt dissection. Care was taken to retract all vital neurovascular structures throughout the duration of the procedure. All superficial bleeding vessels were cauterized utilizing the electrocautery. Dissection was then carried down to the level of the periosteum overlying the distal fibula. At this time, intraoperative fluoroscopy was utilized to confirm appropriate location of the fracture site. A #15 blade was then utilized to make a linear longitudinal incision through the periosteum overlying the distal fibula. A Veras elevator and #15 blade was then utilized to free the periosteal tissues from the distal fibula in the fracture site. At this time, the fracture site can be visualized and it was cleared of any hematoma and soft tissue debris. The surgical area was then flushed with copious amounts of sterile normal saline. Next, bone reduction forceps were utilized and attempts to reduce the fracture site. Due to the fracture transverse orientation, the Synthes 7-hole 2.5 mm LTP plate was applied to the lateral aspect of the fibula and the bone reduction was reduction. With fracture site adequately reduced and the fibula in anatomic position, the bone reduction forceps were clamped through temporary reduction. Intraoperative fluoroscopy was then utilized to confirm appropriate reduction of the fibula fracture as well as synagogue of . Next, the plate was secured to the lateral aspect of the fibula first with two 3.5 mm fully threaded locking screws and the holes just proximal to the fracture site. Next, a 3.5 cortical screw was then inserted into the hole just distal to the fracture site and it was drilled eccentrically to provide two cuts on fracture site. The plate was then secured to the fibula by inserting one 3.5 mm fully threaded locking screw into the most proximal hole of the plate, another 2.5 mm fully threaded locking screw into most distal in the plate. Once screws were inserted utilizing standard AO technique and tightened to 2-finger tightness, intraoperative fluoroscopy was then utilized to confirm appropriate positioning of all internal hardware and adequate reduction and stabilization of the fibula fracture. Next, attention was directed to the medial aspect of the patient's where a curvilinear incision was made overlying the medial malleolus utilizing #15 blade. The incision was deepened through the superficial and subcutaneous tissues utilizing sharp and blunt dissection. Care was taken to retract all vital neurovascular structures throughout the duration of the procedure. Dissection was then carried down through the level of periosteum overlying the medial malleolus and the linear incision was made with a #15 blade through the periosteal tissue. A #15 blade and veras elevator were then utilized through the periosteal tissues overlying the fracture site. At this time, the fracture site could be adequately visualized and it was cleared off all soft tissue and bony debris. The surgical area was then flushed with copious amounts of sterile normal saline. The fracture was then reduced utilizing manual reduction as well as a K-wire and temporary held reduced positioning utilizing two guidewires from the Synthes 4.5 mm cannulated screw set. The guidewires were inserted fracture site and intraoperative fluoroscopy was utilized to confirm appropriate positioning of the guidewires. Once appropriate positioning of the guidewires were obtained and the fracture site was adequately reduced with and intraoperative fluoroscopy, two Synthes 4.5 mm partially-threaded cannulated screws were inserted over the guidewires utilizing standard AO technique. The screws were tightened to two finger tightness and guidewires were then removed. Intraoperative fluoroscopy was then again utilized to confirm appropriate positioning of the screws and adequate reduction of the medial malleolar fracture with convey of anatomic positioning of the ankle joint mortise. The surgical area was then again flushed with copious amounts of sterile normal saline. Attention was then directed back to the lateral incision and preparation for placement of syndesmotic utilizing the plate hole left open distal tibial fracture site and at the appropriate level fixation, the guidewire for was inserted through this plate hole, angled approximately 30 degrees anteriorly. Intraoperative fluoroscopy was then utilized to confirm appropriate positioning of the guidewire. Next, the cannulated drill from the Arthrex over the guidewire utilizing standard technique. The Arthrex TightRope implant was then inserted after removal of the guidewire utilizing standard technique. Intraoperative fluoroscopy was utilized throughout appropriate position. Once TightRope was then tightened utilizing standard technique and the remaining suture button. At this time, it was noted that the syndesmosis had been adequately fixated and intraoperative fluoroscopy was utilized to confirm appropriate positioning of the TightRope. The surgical area was then flushed with copious amounts of sterile normal saline. The capsule and periosteal tissues were approximated utilizing 2-0 Vicryl suture. The subcutaneous tissues were then re-approximated utilizing 4-0 Vicryl suture. The skin was then re-approximated utilizing 4-0 nylon suture. Postoperative dressing consisted of saline-soaked gauze, DSD, Kerlix, cast padding, posterior splint, and Kvng bandages. POSTOPERATIVE CONDITION: The patient tolerated the procedure and anesthesia well with no apparent complications or complaints. The patient was escorted from the OR to the recovery room with vital signs stable and neurovascular status intact. The patient will follow up with Dr. Stone at the [facility]. Kiko Stoll DPM GM
== END 2018-01-20 01:20 | disposition home or self-care (01) | DRG 219 ==
LOC: H.ER 02:00 → H.ERHOLD 02:36 → H.PEDS 05:00
PROVIDERS: ADMIT Family Medicine Geriatric Medicine; ATTEND Family Medicine Geriatric Medicine
PROC: 0QSK04Z Reposition Left Fibula with Internal Fixation Device, Open Approach (ICD-10-PCS; principal; 2018-01-17 12:30)
PROC: 3E0T3BZ Introduction of Anesthetic Agent into Peripheral Nerves and Plexi, Percutaneous Approach (ICD-10-PCS; 2018-01-17 12:30)
DX: S82.842A Displaced bimalleolar fracture of left lower leg, initial encounter for closed fracture (principal); W19.XXXA Unspecified fall, initial encounter; R73.03 Prediabetes; R06.02 Shortness of breath; R07.9 Chest pain, unspecified; R50.9 Fever, unspecified

== ENCOUNTER 2018-01-25 13:32 | Emergency (ER) | payer OTHER ==
[2018-01-25 13:43] VITALS: BP 125/79; PULSE 77; RESP 20; TEMP 98.3; O2SAT 99; BMI 35.6
--- NOTE | 2018-01-25 14:45 | ED PDOC ---
Lower Extremity Pain/Injury Time Seen by Provider: 01/25/18 13:44 Chief Complaint (Nursing): Lower Extremity Problem/Injury Chief Complaint (Provider): Left leg pain History Per: Patient History/Exam Limitations: no limitations Onset/Duration Of Symptoms: Persistent Current Symptoms Are (Timing): Still Present Additional History Per: Patient Additional Complaint(s): 42yo female, presents to the ED today with complaints of left leg pain and tightness due to her splint. Patient was seen in this faiclity on 01/12/18 after she injured her left ankle and again on 01/14/18 when she re-injured the same ankle; patient was diagnosed with a bimalleolar fracture and had foot surgery performed by Dr. Stone. Patient was seen yesterday for a wound check and had her splint reapplied; today, she reports pain to her foot and "tightness" due to the splint. She denies any new injuries, trauma, weakness, numbness or tingling of her lower extremities. Patient has no other medical complaints. Past Medical History Reviewed: Historical Data, Nursing Documentation, Vital Signs Vital Signs: Last Vital Signs Temp 98.3 F 01/25/18 13:42 Pulse 77 01/25/18 13:42 Resp 20 01/25/18 13:42 BP 125/79 01/25/18 13:42 Pulse Ox 99 01/25/18 13:42 - Medical History PMH: Diabetes (pre-DM), Fractures (left ankle fracture) Denies: HIV, Chronic Kidney Disease - Surgical History Surgical History: Other surgeries: foot surgery - Family History Family History: States: Unknown Family Hx - Home Medications Home Medications: Ambulatory Orders Medication Instructions Recorded Naproxen 375 mg PO PRN PRN #30 tablet 01/18/18 Acetaminophen [Tylenol 325mg tab] 650 mg PO Q6 PRN #20 tab 01/19/18 Docusate Sodium/Sennosides A 2 tab PO PRN PRN #30 tab 01/19/18 [Senokot S 50 MG-8.6 MG] Pantoprazole [Protonix] 40 mg PO DAILY #30 ect 01/19/18 oxyCODONE/Acetaminophen [Percocet 2 tab PO Q4 PRN tab 01/19/18 5/325 mg Tab] - Allergies Allergies/Adverse Reactions: Allergies Allergy/AdvReac Type Severity Reaction Status Date / Time No Known Allergies Allergy Verified 01/25/18 13:40 Review of Systems ROS Statement: Except As Marked, All Systems Reviewed And Found Negative Constitutional: Negative for: Fever, Chills Musculoskeletal: Positive for: Foot Pain Neurological: Negative for: Weakness, Numbness Physical Exam - Reviewed Nursing Documentation Reviewed: Yes Vital Signs Reviewed: Yes - Physical Exam Appears: Positive for: Non-toxic, No Acute Distress Head Exam: Positive for: ATRAUMATIC, NORMAL INSPECTION, NORMOCEPHALIC Skin: Positive for: Normal Color Eye Exam: Positive for: Normal appearance Neck: Positive for: Supple Cardiovascular/Chest: Positive for: Regular Rate, Rhythm Respiratory: Positive for: Normal Breath Sounds. Negative for: Wheezing Pulses-Dorsalis Pedis (L): 2+ Pulses-Dorsalis Pedis (R): 2+ Extremity: Positive for: Other (surgical scar noted to left medial ankle, well healing with no surrounding erythema, edema, streaking. ). Negative for: Deformity Neurologic/Psych: Positive for: Alert, Oriented. Negative for: Motor/Sensory Deficits - ECG O2 Sat by Pulse Oximetry: 99 (RA) Pulse Ox Interpretation: Normal Medical Decision Making Medical Decision Making: Impression: Left ankle pain Plan: -- Toradol 60 mg IM -- Podiatry consult Time: 1445 Patient seen and evaluated by podiatry resident who reapplied splint. Per podiatry, patient is stable for discharge home and instructed to follow up outpatient podiatry clinic next week. Patient is agreeable with plan. Scribe Attestation: Documented by Marcie Gardner, acting as a scribe for DAVIDE Gomez. Provider Scribe Attestation: All medical record entries made by the Scribe were at my direction and personally dictated by me. I have reviewed the chart and agree that the record accurately reflects my personal performance of the history, physical exam, medical decision making, and the department course for this patient. I have also personally directed, reviewed, and agree with the discharge instructions and disposition. Disposition - Clinical Impression Clinical Impression: Leg pain - Patient ED Disposition Is Patient to be Admitted: No - Disposition Referrals: Ricardo Stone MD [Staff Provider] - Disposition: Routine/Home Disposition Time: 15:04 Condition: STABLE Instructions: Muscle and Bone Pain (DC) Forms: [employer] (Setswana) Print Language: SLOVENIAN
--- NOTE | 2018-01-25 16:13 | CP.PCM.CON ---
History of Present Illness - History of Present Illness History of Present Illness: 42 year old female seen in ED 8 days s/p ORIF bimalleolar fracture left ankle with Dr. Stone complaining of pain in her foot. Patient states that she was seen in clinic yesterday and the dressing/posterior splint was changed. She thinks that the splint was put on too tightly/in bad alignment because she has been having pain in her foot ever since. Patient also states that she is no longer taking her pain medication because it was giving her a rash. She denies any further pedal complaints at this time. Denies any recent N/V/F/C/CP/SOB/D/ posterior calf pain when squeezed Review of Systems - Review of Systems Review of Systems: ROS as per HPI Past Patient History - Past Medical History & Family History Past Medical History?: Yes - Past Social History Smoking Status: Never Smoked - CARDIAC Hx Cardiac Disorders: No - PULMONARY Hx Respiratory Disorders: No - NEUROLOGICAL Hx Neurological Disorder: No - HEENT Hx HEENT Problems: No - RENAL Hx Chronic Kidney Disease: No - ENDOCRINE/METABOLIC Hx Endocrine Disorders: Yes - HEMATOLOGICAL/ONCOLOGICAL Hx Human Immunodeficiency Virus (HIV): No - INTEGUMENTARY Hx Dermatological Problems: No - MUSCULOSKELETAL/RHEUMATOLOGICAL Hx Fractures: Yes (left ankle fracture) - GASTROINTESTINAL Hx Gastrointestinal Disorders: No - GENITOURINARY/GYNECOLOGICAL Hx Genitourinary Disorders: No - PSYCHIATRIC Hx Psychophysiologic Disorder: No Hx Substance Use: No - SURGICAL HISTORY Hx Surgeries: Yes Hx Section: Yes (x2) - ANESTHESIA Hx Anesthesia: Yes Hx Anesthesia Reactions: No Hx Malignant Hyperthermia: No Meds Allergies/Adverse Reactions: Allergies Allergy/AdvReac Type Severity Reaction Status Date / Time No Known Allergies Allergy Verified 01/25/18 13:40 Physical Exam - Constitutional Appears: Well, Non-toxic, No Acute Distress - Extremities Exam Additional comments: LLE focused exam: Vasc: DP/PT pulses fully palpable 2/4 b/l. Skin temperature warm to warm from proximal to distal. CFT < 3 seconds to all digits b/l. Mild edema to left ankle and foot appropriate for postoperative state Neuro: Epicritic and protective sensation grossly intact b/l Derm: Incision sites well coapted with no signs of dehiscence noted. No drainage , no malodor, no erythema, no other clinical signs of infection noted. 1 cm x 1 cm blister noted to medial foot that patient says occurred postoperatively when she fell at home. Mild ecchymosis noted to dorsal foot consistent with postoperative state Otherwise no open lesions, wounds, maceration, xerosis, abnormal pigmentation or abnormal growths noted MSK: Mild POP to ecchymotic area of dorsal foot. Limited ROM at ankle joint consistent with postoperative state. No pain in posterior calf with dorsiflexion of foot or calf squeeze - Neurological Exam Neurological exam: Alert, Oriented x3 - Psychiatric Exam Psychiatric exam: Normal Affect, Normal Mood Results - Vital Signs Recent Vital Signs: Last Vital Signs Temp 98.3 F 01/25/18 13:42 Pulse 77 01/25/18 13:42 Resp 20 01/25/18 13:42 BP 125/79 01/25/18 13:42 Pulse Ox 99 01/25/18 14:56 Assessment & Plan - Assessment and Plan (Free Text) Assessment: 42 year old female seen in ED 8 days s/p ORIF bimalleolar fracture left ankle with Dr. Stone complaining of pain in her foot most likely secondary to tight bandaging/splint Plan: Patient seen and evaluated in ED Plan discussed with attending Dr. Stone Charts, labs, vitals reviewed Patient's leg dressed with posterior splint with extra padding Patient to keep dressing C/D/I Patient advised to elevated foot as much as possible and limit activity Patient to remain strict NWB to left foot Patient to take Tylenol as needed for pain Patient to follow up in podiatry clinic next week at regularly scheduled appointment - Date & Time Date: 01/25/18 Time: 16:19
== END 2018-01-25 15:13 | disposition home or self-care (01) ==
LOC: H.ER 13:32
DX: M79.605 Pain in left leg (principal); S82.842D Displaced bimalleolar fracture of left lower leg, subsequent encounter for closed fracture with routine healing
CPT/HCPCS: 29515; 96372; 99283; J1885

== ENCOUNTER 2018-02-16 21:24 | Emergency (ER) | payer SELFPAY ==
[2018-02-16 21:25] VITALS: BMI 35.6
[2018-02-16 21:51] VITALS: BP 119/75; PULSE 74; RESP 18; TEMP 99; O2SAT 99
--- NOTE | 2018-02-16 22:13 | CP.PCM.CON ---
History of Present Illness - History of Present Illness History of Present Illness: Podiatry Consult Note - Dr. Stone 42 year old female patient seen in ED complaining of left lower extremity pain. Patient is accompanied by her daughter. Of note, patient is 4 weeks s/p left ankle bimalleolar ankle fracture ORIF. Patient was seen in the podiatry clinic on Monday and had her cast changed at that time. At present patient is complaining of moderate pain in her medial ankle, and believes the cast may have been put on too tightly. Patient denies any posterior calf pain to LLE, chest pains, or SOB. Patient states she has been taking Ibuprofen for pain which provides relief of symptoms. Denies N/V/F/D/C/WEBBER/dizziness. Offers no other complaints. Review of Systems - Review of Systems All systems: reviewed and no additional remarkable complaints except (as per HPI ) Past Patient History - Past Medical History & Family History Past Medical History?: Yes - Past Social History Smoking Status: Never Smoked - CARDIAC Hx Cardiac Disorders: No - PULMONARY Hx Respiratory Disorders: No - NEUROLOGICAL Hx Neurological Disorder: No - HEENT Hx HEENT Problems: No - RENAL Hx Chronic Kidney Disease: No - ENDOCRINE/METABOLIC Hx Endocrine Disorders: Yes - HEMATOLOGICAL/ONCOLOGICAL Hx Human Immunodeficiency Virus (HIV): No - INTEGUMENTARY Hx Dermatological Problems: No - MUSCULOSKELETAL/RHEUMATOLOGICAL Hx Fractures: Yes (left ankle fracture) - GASTROINTESTINAL Hx Gastrointestinal Disorders: No - GENITOURINARY/GYNECOLOGICAL Hx Genitourinary Disorders: No - PSYCHIATRIC Hx Psychophysiologic Disorder: No Hx Substance Use: No - SURGICAL HISTORY Hx Surgeries: Yes Hx Section: Yes (x2) - ANESTHESIA Hx Anesthesia: Yes Hx Anesthesia Reactions: No Hx Malignant Hyperthermia: No Meds Allergies/Adverse Reactions: Allergies Allergy/AdvReac Type Severity Reaction Status Date / Time oxycodone Allergy RASH Verified 02/16/18 21:46 Physical Exam - Constitutional Appears: Well, Non-toxic, No Acute Distress - Extremities Exam Additional comments: LLE exam: Derm: Lateral surgical incision is well-coapted with no dehiscence or clinical signs of infection noted. Medial surgical incision noted to have wound dehiscence at the proximal and distal aspects; minimal serosanguinous drainage present; absent erythema; absent malodor; absent purulence; absent fluctuance. No clinical sign of acute infection is noted. Dry eschars noted to central aspect of medial surgical incision. No active bleeding noted during removal of dressing. Vascular: DP and PT pulses are palpable 2/4, CFT < 3sec to all digits, temperature gradient cool to cool with no increase in warmth to medial incision , mild non-pitting edema noted to left ankle extending distally into digits Neuro: Gross sensation intact. MSK: Muscle strength 5/5 for all dorsiflexors, plantarflexors, inverters, and everters with minimal pain noted. Digital ROM present. Ankle joint ROM limited due to guarding. Mild pain on palpation lateral malleolus and medial malleolus. No pain upon calf squeeze.l - Neurological Exam Neurological exam: Alert, Oriented x3 - Psychiatric Exam Psychiatric exam: Anxious Results - Vital Signs Recent Vital Signs: Last Vital Signs Temp 99 F 02/16/18 21:47 Pulse 74 02/16/18 21:47 Resp 18 02/16/18 21:47 BP 119/75 02/16/18 21:47 Pulse Ox 99 02/16/18 21:47 Assessment & Plan - Assessment and Plan (Free Text) Assessment: 42F 4 weeks s/p left bimalleolar ankle fracture ORIF with pain in left lower extremity secondary to tight cast Plan: Patient seen and evaluated Discussed with attending, Dr. Stone Incisions cleansed with normal saline, betadine applied to medial incisional wound dehiscence and dressed with steri-strips and DSD Fiberglass cast removed, reapplied, and bivalved. Instructed patient to continue NWB LLE with the assistance of walker Educated patient on post-operative course and pain control Advised patient to obtain CAM walker for next clinic appointment Patient to obtain XR left ankle prior to next clinic appointment Patient will follow up in the podiatry clinic at regularly scheduled appointment 02/21/18 Thank you for the consult
--- NOTE | 2018-02-16 22:58 | ED PDOC ---
Lower Extremity Pain/Injury Time Seen by Provider: 02/16/18 21:57 Chief Complaint (Nursing): Lower Extremity Problem/Injury History Per: Patient Additional Complaint(s): 42-year-old female status post ORIF of the left ankle performed on January 17, 2018, presents complaining of throbbing pain to the incision site of her left ankle. Patient states that she recently found up at the podiatry clinic on Monday and had casts. The wearing on her left ankle we applied. Patient reports no fever, chills, numbness. There is no additional complaints at this time. Past Medical History Vital Signs: Last Vital Signs Temp 99 F 02/16/18 21:47 Pulse 74 02/16/18 21:47 Resp 18 02/16/18 21:47 BP 119/75 02/16/18 21:47 Pulse Ox 99 02/16/18 21:47 - Medical History PMH: Diabetes (pre-DM), Fractures (left ankle fracture) Denies: HIV, Chronic Kidney Disease - Surgical History Surgical History: - Family History Family History: States: Unknown Family Hx - Home Medications Home Medications: Ambulatory Orders Medication Instructions Recorded Naproxen 375 mg PO PRN PRN #30 tablet 01/18/18 Acetaminophen [Tylenol 325mg tab] 650 mg PO Q6 PRN #20 tab 01/19/18 Docusate Sodium/Sennosides A 2 tab PO PRN PRN #30 tab 01/19/18 [Senokot S 50 MG-8.6 MG] Pantoprazole [Protonix] 40 mg PO DAILY #30 ect 01/19/18 oxyCODONE/Acetaminophen [Percocet 2 tab PO Q4 PRN tab 01/19/18 5/325 mg Tab] - Allergies Allergies/Adverse Reactions: Allergies Allergy/AdvReac Type Severity Reaction Status Date / Time oxycodone Allergy RASH Verified 02/16/18 21:46 Review of Systems Constitutional: Negative for: Fever, Weakness, Malaise Musculoskeletal: Positive for: Other (left ankle pain, s/p ORIF ). Negative for : Leg Pain, Foot Pain Skin: Negative for: Rash Neurological: Negative for: Weakness, Numbness Physical Exam - Physical Exam Comments: GENERAL APPEARANCE: Patient is awake, alert, oriented x 3, in no acute distress. Sitting comfortably. SKIN: Warm, dry, (-) skin leasions or rashes. LOWER EXTREMITY: Cast noted to the left lower leg, does not appear to be tightly applied, (-) distal neurovascular deficit, (+) normal cap refill and distal sensation to toes intact. Remainder of the knee and thigh: (-) tenderness, (-) edema. - ECG O2 Sat by Pulse Oximetry: 99 Medical Decision Making Medical Decision Making: Previous medical records reviewed : 01/12/18 seen in ER for L ankle bimalleolar fracture, seen and eval by podiatry, splint applied, d/c for outpt f/u and surgery. 01/14/18 pt seen again in the ER for L ankle pain, repeat XRs at that time revealed further displaced bimalleolar fracture, she was admitted. 01/17/18 open reduction with internal fixation of left ankle fracture done. 01/19/18 pt d/c from hospital admission. 01/25/18 returned to the ER, c/o L leg pain due to tightness of splint, splint removed and new splint applied. Plan : - Consult with podiatry. Case d/w Dr. Radha Guerrero. - Patient being evaluated by Dr. Guerrero, pod resident. - Cast being removed by podiatry resident. - After cast removal, on exam, (+) well healing long vertical surgical scar to the lateral L ankle, (+) slowly healing linear wound to the medial L ankle with mild wound dehiscence but no evidence of infetion, no erythema, no edema or d/c noted. There is no edema to the LLE, no calf tenderness. - New bivalve cast applied with an alec wrap by podiatry resident. - Outpt follow up as per podiatry resident. - Patient given instructions to follow up with podiatry clinic. Disposition - Clinical Impression Clinical Impression: S/P ORIF (open reduction internal fixation) fracture, Left ankle pain - Patient ED Disposition Is Patient to be Admitted: No Counseled Patient/Family Regarding: Diagnosis, Need For Followup - Disposition Referrals: Podiatry Clinic [Outside] Disposition: Routine/Home Disposition Time: 23:45 Condition: STABLE Additional Instructions: Thank you for letting us take care of you today. You were treated for L ankle fracture, s/p ORIF. The emergency medical care you received today was directed at your acute symptoms. Return to the Emergency Department if your symptoms worsen, do not improve, or if you have any other problems. Please follow up with the podiatry clinic in 2-3 days for re-evaluation and follow up. Bring any paperwork you were given at discharge with you along with any medications you are taking to your follow up visit. Our treatment cannot replace ongoing medical care by a primary care provider (PCP) outside of the emergency department. Thank you for allowing the [facility] team to be part of your care today. Instructions: Ankle Fracture (DC), Open Reduction and Internal Fixation Surgery (DC) Forms: [employer] (Spanish) Print Language: ARGENTINE - PA / LOGISTICS AND PLANNING MANAGER / Resident Statement MD/DO has reviewed & agrees with the documentation as recorded.
[2018-02-16] MEDS ORDERED: Povidone Iodine Oint 10% Foilpak UD ONE (23:22)
== END 2018-02-16 23:58 | disposition home or self-care (01) ==
LOC: H.ER 21:24
DX: S82.842A Displaced bimalleolar fracture of left lower leg, initial encounter for closed fracture (principal); Z98.890 Other specified postprocedural states; Z88.5 Allergy status to narcotic agent

== ENCOUNTER 2018-03-10 19:39 | Emergency (ER) | payer SELFPAY ==
[2018-03-10 19:42] VITALS: BMI 34.7
[2018-03-10 19:44] VITALS: O2SAT 97
--- NOTE | 2018-03-10 22:21 | ED PDOC ---
Lower Extremity Pain/Injury Time Seen by Provider: 03/10/18 21:20 Chief Complaint (Nursing): Lower Extremity Problem/Injury Chief Complaint (Provider): Left ankle pain History Per: Patient History/Exam Limitations: no limitations Onset/Duration Of Symptoms: Hrs (this morning) Current Symptoms Are (Timing): Still Present Additional Complaint(s): 42 year old female presented to ED for evaluation of left ankle pain. Patient states that on January 17, she had surgery to affected ankle for ankle fracture. The cast was removed on Monday and this morning, her daughter was maneuvering her in the wheelchair and bumped into the wall. Persistent pain prompted ED visit. She reports she was compliant with the cam boot and non weight bearing status. PMD: Ricardo Lunsford Past Medical History Reviewed: Historical Data, Nursing Documentation, Vital Signs Vital Signs: Last Vital Signs Temp 98.3 F 03/10/18 19:42 Pulse 85 03/10/18 19:42 Resp 16 03/10/18 19:42 BP 119/77 03/10/18 19:42 Pulse Ox 97 03/10/18 19:42 - Medical History PMH: Diabetes (pre-DM), Fractures (left ankle fracture) Denies: Chronic Kidney Disease - Surgical History Surgical History: Other surgeries: Ankle surgery - Family History Family History: States: Unknown Family Hx - Living Arrangements Living Arrangements: With Family - Social History Current smoker - smoking cessation education provided: No Alcohol: None Drugs: Denies - Home Medications Home Medications: Ambulatory Orders Medication Instructions Recorded Naproxen 375 mg PO PRN PRN #30 tablet 01/18/18 Acetaminophen [Tylenol 325mg tab] 650 mg PO Q6 PRN #20 tab 01/19/18 Docusate Sodium/Sennosides A 2 tab PO PRN PRN #30 tab 01/19/18 [Senokot S 50 MG-8.6 MG] Pantoprazole [Protonix] 40 mg PO DAILY #30 ect 01/19/18 oxyCODONE/Acetaminophen [Percocet 2 tab PO Q4 PRN tab 01/19/18 5/325 mg Tab] - Allergies Allergies/Adverse Reactions: Allergies Allergy/AdvReac Type Severity Reaction Status Date / Time oxycodone Allergy RASH Verified 03/10/18 21:28 Review of Systems ROS Statement: Except As Marked, All Systems Reviewed And Found Negative Musculoskeletal: Positive for: Other (left ankle pain) Physical Exam - Reviewed Nursing Documentation Reviewed: Yes Vital Signs Reviewed: Yes - Physical Exam Comments: GENERAL APPEARANCE: Patient is awake, alert, oriented x 3, in no acute distress. Resting comfortably. SKIN: Warm, dry; (-) cyanosis. NECK: Supple, FROM LEFT ANKLE: (+) effusion (+) healing vertically oriented surgical incisions to both the medial and lateral aspects of ankle. ROM can't be assessed due to pain. (+) diffuse tenderness. Neurovascularly intact. Sensations intact. (+) distal pulses. (-) calf tenderness. Remainder of left leg with full ROM of knee , hip. HEART AND CARDIOVASCULAR: (-) irregularity; (-) murmur, (-) gallop. CHEST AND RESPIRATORY: (-) rales, (-) rhonchi, (-) wheezes; breath sounds equal. Respirations even and nonlabored, speaking in full sentences. ABDOMEN: Soft, (-) distention, (-) tenderness, (-) guarding. NEURO AND PSYCH: Mental status as above. Speech clear, (-) facial asymmetry (-) aphasia (-) facial droop. - ECG O2 Sat by Pulse Oximetry: 97 (RA) Pulse Ox Interpretation: Normal Medical Decision Making Medical Decision Making: Initial Impression: acute ankle pain, ankle fracture Initial Plan: X-ray Ankle Podiatry consult Patient declined pain medication at this time. 21:35 Case discussed with podiatry resident, Dr. Guerrero, who recommends x-rays. Agreeable to evaluating patient in ED. 22:30 Podiatry at bedside. See consult note. [id number] XR reviewed: post-surgical changes, healing fibula fracture (-) significant change from last films Per podiatry (Dr Guerrero), patient can follow up as planned on 03/21/18 in clinic. Continue nonweight-bearing status. On re-evaluation, patient reports improvement of symptoms. On exam, patient remains AAOx3, in no acute distress. On exam, neck is supple, lungs CTA, cardiac RRR, neuro exam shows no focal findings. Vitals stable. Diagnostic results d/w the patient in great detail. Dx of ankle pain, subsequent encounter for ankle fracture d/w the patient. Based on history, exam and diagnostic results plan will be for discharge and outpatient podiatry follow up. Advised to follow up with primary care physician/podiatry as planned. Return to the emergency room at any time for any new or worsening symptoms. Patient states she fully agrees with and understands discharge instructions. States that she agrees with the plan and disposition. Verbalized and repeated discharge instructions and plan. I have given the patient opportunity to ask any additional questions. Scribe Attestation: Documented by Flex Bejarano acting as a scribe for Huyen AUGUSTINE. Provider Scribe Attestation: All medical record entries made by the Scribe were at my direction and personally dictated by me. I have reviewed the chart and agree that the record accurately reflects my personal performance of the history, physical exam, medical decision making, and the department course for this patient. I have also personally directed, reviewed, and agree with the discharge instructions and disposition. Disposition - Clinical Impression Clinical Impression: Ankle pain, Fracture of tibia and fibula - Patient ED Disposition Is Patient to be Admitted: No Counseled Patient/Family Regarding: Studies Performed, Diagnosis, Need For Followup, Rx Given - Disposition Referrals: Podiatry Clinic [Outside] Disposition: Routine/Home Disposition Time: 23:13 Condition: STABLE Additional Instructions: FOLLOW UP WITH PODIATRY CLINIC SCHEDULED, 03/21/18. RETURN TO ED WITH ANY NEW OR WORSENING SYMPTOMS. USE PAIN PRESCRIBED BY PODIATRY NEEDED. REST ICE ELEVATE. Instructions: Ankle Fracture Forms: [employer] (Khmer) Print Language: KAZAKH - POA Present On Arrival: Falls Or Trauma
--- NOTE | 2018-03-10 22:39 | CP.PCM.CON ---
History of Present Illness - History of Present Illness History of Present Illness: Podiatry Consult Note - Dr. Stone 42 year old female patient seen in ED complaining of left lower extremity pain. Patient is accompanied by her daughter. Of note, patient is 7.5 weeks s/p left bimalleolar ankle fracture ORIF. Patient was seen in the podiatry clinic last 03/07/18, her cast was removed and was transitioned to be NWB in a CAM walker. Patient states at 2PM today she accidentally bumped the bottom of her foot against a wall; admits she was wearing her CAM walker at time of injury. She states she felt 7/10 initially, but pain decreased to 4/10 as the day progressed. Patient admits she no longer needs OTC analgeics for pain control. Patient continues to ice and elevate LLE. Denies N/V/F/D/C/SOB. Review of Systems - Review of Systems All systems: reviewed and no additional remarkable complaints except (as per HPI ) Past Patient History - Past Medical History & Family History Past Medical History?: Yes - Past Social History Smoking Status: Never Smoked - CARDIAC Hx Cardiac Disorders: No - PULMONARY Hx Respiratory Disorders: No - NEUROLOGICAL Hx Neurological Disorder: No - HEENT Hx HEENT Problems: No - RENAL Hx Chronic Kidney Disease: No - ENDOCRINE/METABOLIC Hx Endocrine Disorders: Yes - HEMATOLOGICAL/ONCOLOGICAL Hx Human Immunodeficiency Virus (HIV): No - INTEGUMENTARY Hx Dermatological Problems: No - MUSCULOSKELETAL/RHEUMATOLOGICAL Hx Fractures: Yes (left ankle fracture) - GASTROINTESTINAL Hx Gastrointestinal Disorders: No - GENITOURINARY/GYNECOLOGICAL Hx Genitourinary Disorders: No - PSYCHIATRIC Hx Psychophysiologic Disorder: No Hx Substance Use: No - SURGICAL HISTORY Hx Surgeries: Yes Hx Section: Yes (x2) - ANESTHESIA Hx Anesthesia: Yes Hx Anesthesia Reactions: No Hx Malignant Hyperthermia: No Meds Allergies/Adverse Reactions: Allergies Allergy/AdvReac Type Severity Reaction Status Date / Time oxycodone Allergy RASH Verified 03/10/18 21:28 Physical Exam - Constitutional Appears: Well, Non-toxic, No Acute Distress - Extremities Exam Additional comments: LLE exam: Vascular: DP and PT pulses are palpable 2/4, CFT < 3sec to all digits, temperature gradient cool to cool with no increase in warmth to medial wound dehiscence, mild non-pitting edema noted to left ankle extending distally into digits Neuro: Gross sensation intact. Derm: Well-healed cicatrix noted to lateral ankle with no evidence of wound dehiscence. Medial surgical incision noted to have pinpoint areas of dehiscence , though epithelializing; no drainage noted; no erythema; no purulence; no malodor; no fluctuance. MSK: Muscle strength 4/5 for all dorsiflexors, plantarflexors, inverters, and everters with minimal pain noted. Digital ROM present. Ankle joint ROM limited due to guarding. Mild pain on palpation lateral malleolus and medial malleolus. No pain upon calf squeeze.l - Neurological Exam Neurological exam: Alert, Oriented x3 - Psychiatric Exam Psychiatric exam: Anxious Results - Vital Signs Recent Vital Signs: Last Vital Signs Temp 98.3 F 03/10/18 19:42 Pulse 85 03/10/18 19:42 Resp 16 03/10/18 19:42 BP 119/77 03/10/18 19:42 Pulse Ox 97 03/10/18 22:34 Assessment & Plan - Assessment and Plan (Free Text) Assessment: 42F 7.5 weeks s/p left bimalleolar ankle fracture ORIF with pain in left lower extremity secondary to trauma Plan: Patient seen and evaluated Discussed with attending, Dr. Bertha Aguilar ankle XR reviewed: No evidence of hardware loosening; no significant interval change since 03/07 Discussed with patient there are no acute changes noted 2/2 injury DSD applied to ankle, CAM walker reapplied Continue NWB LLE OTC analgesics prn pain Continue RICE therapy Patient will follow up in the podiatry clinic at regularly scheduled appointment 03/21/18 Thank you for the consult
[2018-03-11 02:39] VITALS: BP 130/76; PULSE 87; RESP 18; TEMP 98
--- NOTE | 2018-03-11 09:28 | RAD ---
PROCEDURE: Left Ankle Radiographs. HISTORY: joint pain COMPARISON: Comparison is made with 03/07/2018 FINDINGS: BONES: Again noted internal fixation and stabilization of the distal left tibia and fibula fracture. Interval removal of the cast around the left ankle since the previous exam. No significant interval change in the osseous structure noted since the previous study. JOINTS: Normal. No osteoarthritis. Ankle mortise maintained. Talar dome intact SOFT TISSUES: Mild soft tissue swelling is noted. OTHER FINDINGS: None. IMPRESSION: Internal fixation of the previously noted distal left fibula and left medial malleolus fractures. No evidence of hardware loosening.
== END 2018-03-10 23:55 | disposition home or self-care (01) ==
LOC: H.ER 19:39
DX: M25.572 Pain in left ankle and joints of left foot (principal); S82.202G Unspecified fracture of shaft of left tibia, subsequent encounter for closed fracture with delayed healing; Z88.5 Allergy status to narcotic agent; Z47.89 Encounter for other orthopedic aftercare

== ENCOUNTER 2018-06-17 18:02 | Emergency (ER) | payer SELFPAY ==
[2018-06-17 18:02] VITALS: BMI 34.7
--- NOTE | 2018-06-17 18:41 | ED PDOC ---
Lower Extremity Pain/Injury Time Seen by Provider: 06/17/18 18:20 Chief Complaint (Nursing): Lower Extremity Problem/Injury Chief Complaint (Provider): Lower Extremity Problem/Injury History Per: Patient History/Exam Limitations: no limitations Onset/Duration Of Symptoms: Days (x 2) Current Symptoms Are (Timing): Still Present Additional Complaint(s): 43 year old female presents to the ED with left ankle pain since yesterday. Patient had left ankle ORIF performed in January of [address] Stone. Has since had the surgical boot removed and started physical therapy. Patient's daughter is concerned that the physical therapy has progressed too rapidly. Noted increased swelling with pain in the left calf. Offers no other complaints. PMD: Dr. Sellers Past Medical History Reviewed: Historical Data, Nursing Documentation, Vital Signs Vital Signs: Last Vital Signs Temp 98.1 F 06/17/18 18:10 Pulse 70 06/17/18 18:10 Resp 18 06/17/18 18:10 BP 128/82 06/17/18 18:10 Pulse Ox 98 06/17/18 18:10 - Medical History PMH: Diabetes (pre-DM), Fractures (left ankle fracture) Denies: HIV, Chronic Kidney Disease - Surgical History Surgical History: - Family History Family History: States: Unknown Family Hx - Home Medications Home Medications: Ambulatory Orders Medication Instructions Recorded Naproxen 375 mg PO PRN PRN #30 tablet 01/18/18 Acetaminophen [Tylenol 325mg tab] 650 mg PO Q6 PRN #20 tab 01/19/18 Docusate Sodium/Sennosides A 2 tab PO PRN PRN #30 tab 01/19/18 [Senokot S 50 MG-8.6 MG] Pantoprazole [Protonix] 40 mg PO DAILY #30 ect 01/19/18 oxyCODONE/Acetaminophen [Percocet 2 tab PO Q4 PRN tab 01/19/18 5/325 mg Tab] - Allergies Allergies/Adverse Reactions: Allergies Allergy/AdvReac Type Severity Reaction Status Date / Time oxycodone Allergy RASH Verified 03/10/18 21:28 Review of Systems ROS Statement: Except As Marked, All Systems Reviewed And Found Negative Musculoskeletal: Positive for: Foot Pain (left foot and calf pain accompanied by swelling) Physical Exam - Reviewed Nursing Documentation Reviewed: Yes Vital Signs Reviewed: Yes - Physical Exam Appears: Positive for: Non-toxic, No Acute Distress Head Exam: Positive for: ATRAUMATIC, NORMAL INSPECTION, NORMOCEPHALIC Skin: Positive for: Normal Color, Warm, Dry Eye Exam: Positive for: EOMI, Normal appearance, PERRL Neck: Positive for: Normal, Painless ROM, Supple Cardiovascular/Chest: Positive for: Regular Rate, Rhythm. Negative for: Murmur Respiratory: Positive for: Normal Breath Sounds. Negative for: Wheezing, Respiratory Distress Extremity: Positive for: Normal ROM, Tenderness (to left lateral malleolus and foot), Swelling, Other (surgical wound is well healing with no signs of erythema ). Negative for: Deformity Neurologic/Psych: Positive for: Alert, Oriented (x 3). Negative for: Motor/ Sensory Deficits - ECG O2 Sat by Pulse Oximetry: 98 (RA) Pulse Ox Interpretation: Normal - Progress ED Course And Treament: XRY OF FOOT/ANKLE: HARDWARD INTACT; NO NEW FX SEEN BY PODIATRY WITH RE-EVALUATION AND MODERATE DISCUSSION OF ACTIVITY LEVEL. DUPLEX LOWER EXTREMITY: NEG FOR DVT Medical Decision Making Medical Decision Makin:25 Plan: --Left ankle x-ray --Left foot x-ray --Duplex US lower extremity Discussed with podiatry resident who will review x-rays. Scribe Attestation: Documented by Lorna Negro, acting as a scribe for Yohan Gonzalez PA-C Provider Scribe Attestation: All medical record entries made by the Scribe were at my direction and personally dictated by me. I have reviewed the chart and agree that the record accurately reflects my personal performance of the history, physical exam, medical decision making, and the department course for this patient. I have also personally directed, reviewed, and agree with the discharge instructions and disposition. Disposition - Clinical Impression Clinical Impression: Ankle pain, left - Patient ED Disposition Is Patient to be Admitted: No - Disposition Disposition: Routine/Home Disposition Time: 21:49 Condition: FAIR Instructions: Ankle Sprain (DC) Print Language: MONTSERRATIAN
--- NOTE | 2018-06-17 21:40 | CP.PCM.CON ---
History of Present Illness - History of Present Illness History of Present Illness: Podiatry Consult Note - Dr. Stone 42 year old female patient seen in ED complaining of left lower extremity pain. Patient is accompanied by her daughter. Of note, patient is 17.5 weeks s/p left bimalleolar ankle fracture ORIF. Patient was seen in the podiatry clinic on 06/06, where she was told to slowly transition out of the CAM boot and continue with physical therapy. Patient states that she had a lot of swelling to the left ankle yesterday along with the pain. Patient states that both has been resolving slowly overtime. She states she felt 6/10 initially yesterday, but pain decreased to 4/10 today. Patient denies of any recent injury to the ankle. Patient continues to ice and elevate LLE. Denies N/V/F/D/C/SOB. Review of Systems - Constitutional Constitutional: As Per HPI Past Patient History - Past Medical History & Family History Past Medical History?: Yes - Past Social History Smoking Status: Never Smoked - CARDIAC Hx Cardiac Disorders: No - PULMONARY Hx Respiratory Disorders: No - NEUROLOGICAL Hx Neurological Disorder: No - HEENT Hx HEENT Problems: No - RENAL Hx Chronic Kidney Disease: No - ENDOCRINE/METABOLIC Hx Endocrine Disorders: Yes - HEMATOLOGICAL/ONCOLOGICAL Hx Human Immunodeficiency Virus (HIV): No - INTEGUMENTARY Hx Dermatological Problems: No - MUSCULOSKELETAL/RHEUMATOLOGICAL Hx Fractures: Yes (left ankle fracture) - GASTROINTESTINAL Hx Gastrointestinal Disorders: No - GENITOURINARY/GYNECOLOGICAL Hx Genitourinary Disorders: No - PSYCHIATRIC Hx Psychophysiologic Disorder: No Hx Substance Use: No - SURGICAL HISTORY Hx Surgeries: Yes Hx Section: Yes (x2) - ANESTHESIA Hx Anesthesia: Yes Hx Anesthesia Reactions: No Hx Malignant Hyperthermia: No Meds Allergies/Adverse Reactions: Allergies Allergy/AdvReac Type Severity Reaction Status Date / Time oxycodone Allergy RASH Verified 03/10/18 21:28 Physical Exam - Constitutional Appears: Well, Non-toxic, No Acute Distress - Extremities Exam Additional comments: LLE exam: Vascular: DP and PT pulses are palpable 2/4, CFT < 3sec to all digits, temperature gradient cool to cool from proximal to distal, mild non-pitting edema noted to left ankle extending distally into digits Neuro: Gross sensation intact. Derm: Well-healed cicatrix noted to lateral ankle with no evidence of wound dehiscence; no erythema; no clinical suspicion of active infection MSK: Muscle strength 4/5 for all dorsiflexors, plantarflexors, inverters, and everters with minimal pain noted. Digital ROM present. Ankle joint ROM within normal limit. Mild pain on palpation lateral malleolus and medial malleolus. No pain upon calf squeeze. - Neurological Exam Neurological exam: Alert, Normal Gait - Psychiatric Exam Psychiatric exam: Normal Affect, Normal Mood Results - Vital Signs Recent Vital Signs: Last Vital Signs Temp 98.1 F 06/17/18 18:10 Pulse 70 06/17/18 18:10 Resp 18 06/17/18 18:10 BP 128/82 06/17/18 18:10 Pulse Ox 98 06/17/18 18:45 Assessment & Plan - Assessment and Plan (Free Text) Assessment: 42F 17.5 weeks s/p left bimalleolar ankle fracture ORIF with pain in left lower extremity secondary to trauma Plan: Patient seen and evaluated Discussed with attending, Dr. Bertha Aguilar ankle XR reviewed: No evidence of hardware loosening; no significant interval change since 04/18 Discussed with patient there are no acute changes noted CAM walker reapplied Continue WBAT LLE OTC analgesics prn pain Continue RICE therapy Patient will follow up in the podiatry clinic at regularly scheduled appointment on Wednesdays Thank you for the consult and allowing to take part in patient care - Date & Time Date: 06/17/18 Time: 22:08
[2018-06-17 21:55] VITALS: BP 131/73; PULSE 63; RESP 16; TEMP 97.7; O2SAT 100
--- NOTE | 2018-06-18 09:30 | RAD ---
Date of service: 06/17/2018 PROCEDURE: Left Ankle Radiographs. HISTORY: h/o sx pain after physical therapy COMPARISON: None FINDINGS: BONES: Status ORIF left ankle again are identified including latter compressions plate transfixed by multiple screws along the fibula distally and lateral malleolus and 2 compression screws at the medial malleolus. The syndesmotic lucent screw is seen traversing the distal tibia and fibula once again. No acute fracture identified in the interval. JOINTS: Normal. No osteoarthritis. Ankle mortise maintained. Talar dome intact SOFT TISSUES: Normal. OTHER FINDINGS: None. IMPRESSION: Stable prior ORIF pattern at the distal tibia and fibula with no new fracture appreciable. No interval subluxation or dislocation.
--- NOTE | 2018-06-18 09:33 | RAD ---
Date of service: 06/17/2018 PROCEDURE: Left Foot Radiographs. HISTORY: h/o sx 01/2018 COMPARISON: None. FINDINGS: BONES: No acute fracture or destructive bony lesion identified. Diffuse osteopenia may be a function of disuse given ORIF distal tibia and fibula. Postoperative changes are described in more detail in separate left ankle radiograph exam performed 06/17/2018. JOINTS: No subluxation or dislocation. SOFT TISSUES: Normal. OTHER FINDINGS: None. IMPRESSION: No acute fractures or dislocation. Disuse osteopenia suggested diffusely. Prior ORIF at the ankle described separately and left ankle radiograph series performed 06/17/2018.
--- NOTE | 2018-06-18 10:33 | US ---
Left lower extremity ultrasound. Indication: Lower extremity pain Technique: Duplex ultrasound evaluation of the left lower extremity Comparison: None available Findings: There is normal flow, compressibility, and augmentation of the left common femoral, femoral, and popliteal veins. The left posterior tibial veins appear patent. Impression: No evidence of deep venous thrombosis in the right lower extremity. Preliminary impression was provided by virtual radiologic.
== END 2018-06-17 21:55 | disposition home or self-care (01) ==
LOC: H.ER 18:02
DX: M25.572 Pain in left ankle and joints of left foot (principal)

== ENCOUNTER 2018-10-18 11:19 | Emergency (ER) | payer SELFPAY ==
[2018-10-18 11:19] VITALS: BMI 34.7
[2018-10-18 11:49] VITALS: BP 120/79; RESP 18; TEMP 98.1
[2018-10-18 12:45] VITALS: PULSE 60; O2SAT 99
== END 2018-10-18 12:38 | disposition left against medical advice (07) ==
LOC: H.ER 11:19
DX: Z02.89 Encounter for other administrative examinations (principal)